=== PATIENT | female | born 1960 | race Caucasian/White ===

== ENCOUNTER 2020-02-05 12:03 | Outpatient (CLI) | payer OTHER, SELFPAY ==
[2020-02-05 12:17] LABS: Basophils Absolute Auto 0.05 K/mm3 (0.00-0.10); Basophils Percent Auto 0.6 % (0.0-1.0); Eosinophils Absolute Auto 0.25 K/mm3 (0.02-0.50); Eosinophils Percent Auto 3.1 % (1.0-6.0); Hemoglobin 14.8 g/dL (12.0-15.0); Immature Granulocyte Absolute 0.02 K/mm3 (0.00-0.00); Immature Granulocyte Percent A 0.3 % (0.0-0.0); Lymphocytes Absolute Auto 2.31 K/mm3 (1.10-4.50); Lymphocytes Percent Auto 29.1 % (18.0-42.0); Mean Corpuscular HGB Conc 30.8 g/dL (32.0-36.0); Mean Corpuscular Hemoglobin 30.4 pg (27.0-31.0); Mean Corpuscular Volume 98.6 fL (78.0-102.0); Mean Platelet Volume 10.8 fl (9.2-11.8); Monocytes Absolute Auto 0.51 K/mm3 (0.10-0.90); Monocytes Percent Auto 6.4 % (2.0-11.0); Neutrophils Absolute Auto 4.8 K/mm3 (1.7-7.2); Neutrophils Percent Auto 60.5 % (50.0-70.0); Platelet Count Result 228 K/mm3 (150-420); Red Blood Count 4.87 M/mm3 (4.20-5.40); Red Cell Distribution Width 12.6 % (11.6-14.4)
[2020-02-05 13:02] LABS: Hemoglobin A1C 6.5 % (<5.7)
[2020-02-05 13:58] LABS: Anion Gap 7.8 mmol/L (7-16); Blood Urea Nitrogen 12 mg/dL (7-18); Calcium 9.4 mg/dL (8.5-10.1); Carbon Dioxide 39 mmol/L (21-32); Chloride 101 mmol/L (98-108); Estimated Glomerular Filt Rate > 60; Glucose 131 mg/dL (70-99); Osmolality Calculated 299 mOsm/kg (285-295); Potassium 3.8 mmol/L (3.5-5.1); Sodium 144 mmol/L (136-145); Vitamin B12 477 pg/mL (193-986)
[2020-02-11 09:18] LABS: Methylmalonic Acid 695 nmol/L (87-318)
== END 2020-02-05 12:04 | disposition home or self-care (01) ==
LOC: CHSLAB 12:07
PROVIDERS: PCP Family Medicine; Visit Provider Family Medicine
DX: E53.8 Deficiency of other specified B group vitamins (principal); E11.42 Type 2 diabetes mellitus with diabetic polyneuropathy
CPT/HCPCS: 36415; 80048; 82607; 83036; 83921; 85025

== ENCOUNTER 2020-05-09 10:59 | Outpatient (CLI) | payer OTHER, SELFPAY ==
[2020-05-09 11:15] LABS: Basophils Absolute Auto 0.04 K/mm3 (0.00-0.10); Basophils Percent Auto 0.5 % (0.0-1.0); Eosinophils Absolute Auto 0.24 K/mm3 (0.02-0.50); Hematocrit 45.8 % (35.0-49.0); Hemoglobin 14.2 g/dL (12.0-15.0); Immature Granulocyte Absolute 0.02 K/mm3 (0.00-0.00); Immature Granulocyte Percent A 0.3 % (0.0-0.0); Lymphocytes Percent Auto 25.3 % (18.0-42.0); Mean Corpuscular Hemoglobin 30.3 pg (27.0-31.0); Mean Corpuscular Volume 97.9 fL (78.0-102.0); Mean Platelet Volume 10.7 fl (9.2-11.8); Monocytes Absolute Auto 0.53 K/mm3 (0.10-0.90); Monocytes Percent Auto 6.7 % (2.0-11.0); Neutrophils Absolute Auto 5.1 K/mm3 (1.7-7.2); Neutrophils Percent Auto 64.2 % (50.0-70.0); Platelet Count Result 233 K/mm3 (150-420); Red Blood Count 4.68 M/mm3 (4.20-5.40); Red Cell Distribution Width 13.7 % (11.6-14.4); White Blood Count 7.9 K/mm3 (4.8-10.8)
[2020-05-09 11:34] LABS: Hemoglobin A1C 6.5 % (<5.7)
[2020-05-09 12:12] LABS: Anion Gap 3.9 mmol/L (7-16); Blood Urea Nitrogen 10 mg/dL (7-18); Calcium 9.4 mg/dL (8.5-10.1); Carbon Dioxide 41 mmol/L (21-32); Chloride 101 mmol/L (98-108); Estimated Glomerular Filt Rate > 60; Glucose 206 mg/dL (70-99); Osmolality Calculated 299 mOsm/kg (285-295); Potassium 3.9 mmol/L (3.5-5.1); Sodium 142 mmol/L (136-145); Vitamin B12 646 pg/mL (193-986)
[2020-05-15 09:07] LABS: Methylmalonic Acid 385 nmol/L (87-318)
== END 2020-05-09 11:00 | disposition home or self-care (01) ==
PROVIDERS: PCP Family Medicine; Visit Provider Family Medicine
DX: E53.8 Deficiency of other specified B group vitamins (principal); E11.42 Type 2 diabetes mellitus with diabetic polyneuropathy
CPT/HCPCS: 36415; 80048; 82607; 83036; 83921; 85025

== ENCOUNTER 2020-08-14 13:40 | Outpatient (CLI) | payer OTHER, SELFPAY ==
[2020-08-14 13:55] LABS: Basophils Absolute Auto 0.05 K/mm3 (0.00-0.10); Basophils Percent Auto 0.6 % (0.0-1.0); Hematocrit 46.7 % (35.0-49.0); Hemoglobin 14.3 g/dL (12.0-15.0); Immature Granulocyte Absolute 0.02 K/mm3 (0.00-0.00); Immature Granulocyte Percent A 0.2 % (0.0-0.0); Lymphocytes Absolute Auto 2.04 K/mm3 (1.10-4.50); Lymphocytes Percent Auto 22.6 % (18.0-42.0); Mean Corpuscular HGB Conc 30.6 g/dL (32.0-36.0); Mean Corpuscular Hemoglobin 30.7 pg (27.0-31.0); Mean Corpuscular Volume 100.2 fL (78.0-102.0); Mean Platelet Volume 10.8 fl (9.2-11.8); Monocytes Absolute Auto 0.61 K/mm3 (0.10-0.90); Monocytes Percent Auto 6.8 % (2.0-11.0); Neutrophils Absolute Auto 6.3 K/mm3 (1.7-7.2); Neutrophils Percent Auto 69.8 % (50.0-70.0); Platelet Count Result 241 K/mm3 (150-420); Red Blood Count 4.66 M/mm3 (4.20-5.40)
[2020-08-14 14:06] LABS: Hemoglobin A1C 6.2 % (<5.7)
[2020-08-14 14:43] LABS: Add Urine Microscopic? NO; Appearance Urine Clear (Clear); Bilirubin Urine Negative (Negative); Blood Urine Negative (Negative); Color Urine Yellow (Yellow); Glucose Urine UA Negative (Negative); Ketones Urine Negative (Negative); Leukocyte Esterase Ur Negative (Negative); Nitrate Urine Negative (Negative); Protein Urine Negative (Negative); Urobilinogen Urine 0.2 mg/dL (0.2-1.0)
[2020-08-14 14:58] LABS: Alanine Aminotransferase 17 U/L (14-59); Albumin Level 2.5 g/dL (3.4-5.0); Alkaline Phosphatase 83 U/L (46-116); Anion Gap 5 mmol/L (8-16); Aspartate Amino Transferase 10 U/L (15-37); Blood Urea Nitrogen 10 mg/dL (7-18); Calcium 9.5 mg/dL (8.5-10.1); Carbon Dioxide 40 mmol/L (21-32); Chloride 98 mmol/L (98-108); Estimated Glomerular Filt Rate > 60; Glucose 140 mg/dL (70-99); Osmolality Calculated 297 mOsm/kg (285-295); Potassium 4.1 mmol/L (3.5-5.1); Sodium 143 mmol/L (136-145); Thyroid Stimulating Hormone 1.77 uIU/mL (0.36-3.74); Total Protein 6.7 g/dL (6.4-8.2); Vitamin B12 746 pg/mL (193-986)
== END 2020-08-14 13:41 | disposition home or self-care (01) ==
LOC: CHSLAB 13:43
PROVIDERS: PCP Family Medicine; Visit Provider Family Medicine
DX: E11.42 Type 2 diabetes mellitus with diabetic polyneuropathy (principal); E53.8 Deficiency of other specified B group vitamins
CPT/HCPCS: 36415; 80053; 81003; 82607; 83036; 84443; 85025

== ENCOUNTER 2021-06-23 12:31 | Outpatient (CLI) | payer OTHER, SELFPAY ==
[2021-06-23 12:43] LABS: Basophils Absolute Auto 0.05 K/mm3 (0.00-0.10); Basophils Percent Auto 0.6 % (0.0-1.0); Eosinophils Absolute Auto 0.23 K/mm3 (0.02-0.50); Eosinophils Percent Auto 2.8 % (1.0-6.0); Hematocrit 48.1 % (35.0-49.0); Immature Granulocyte Absolute 0.02 K/mm3 (0.00-0.00); Immature Granulocyte Percent A 0.2 % (0.0-0.0); Lymphocytes Absolute Auto 1.96 K/mm3 (1.10-4.50); Mean Corpuscular HGB Conc 31.2 g/dL (32.0-36.0); Mean Corpuscular Hemoglobin 31.4 pg (27.0-31.0); Mean Corpuscular Volume 100.6 fL (78.0-102.0); Mean Platelet Volume 10.7 fl (9.2-11.8); Monocytes Absolute Auto 0.56 K/mm3 (0.10-0.90); Monocytes Percent Auto 6.8 % (2.0-11.0); Neutrophils Absolute Auto 5.4 K/mm3 (1.7-7.2); Neutrophils Percent Auto 65.6 % (50.0-70.0); Platelet Count Result 206 K/mm3 (150-420); Red Blood Count 4.78 M/mm3 (4.20-5.40); Red Cell Distribution Width 12.9 % (11.6-14.4); White Blood Count 8.2 K/mm3 (4.8-10.8)
[2021-06-23 13:18] LABS: Hemoglobin A1C 6.3 % (<5.7)
[2021-06-23 13:34] LABS: Alanine Aminotransferase 18 U/L (14-59); Albumin Level 3.9 g/dL (3.4-5.0); Alkaline Phosphatase 86 U/L (46-116); Anion Gap 4 mmol/L (8-16); Aspartate Amino Transferase 12 U/L (15-37); Bilirubin,Total 1.3 mg/dL (0.00-1.00); Blood Urea Nitrogen 7 mg/dL (7-18); Carbon Dioxide 41 mmol/L (21-32); Chloride 99 mmol/L (98-108); Estimated Glomerular Filt Rate > 60; Glucose 157 mg/dL (70-99); Osmolality Calculated 299 mOsm/kg (285-295); Potassium 3.6 mmol/L (3.5-5.1); Sodium 144 mmol/L (136-145); Thyroid Stimulating Hormone 1.11 uIU/mL (0.36-3.74); Total Protein 6.5 g/dL (6.4-8.2)
[2021-06-23 15:04] LABS: Bilirubin Direct 0.2 mg/dL (0-0.2)
== END 2021-06-23 12:32 | disposition home or self-care (01) ==
LOC: CHSLAB 12:34
PROVIDERS: PCP Family Medicine; Visit Provider Family Medicine
DX: E11.42 Type 2 diabetes mellitus with diabetic polyneuropathy (principal); R94.5 Abnormal results of liver function studies
CPT/HCPCS: 36415; 80053; 82248; 83036; 84443; 85025

== ENCOUNTER 2022-01-13 13:09 | Observation (INO) | payer OTHER, SELFPAY ==
[2022-01-13] VITALS (14 sets, daily range): BP systolic 104–116; BP diastolic 51–97; PULSE 72–84; RESP 16–26; TEMP 36.3–37; O2SAT 89–96; BMI 24.0
--- NOTE | ~2022-01-13 | XR_ITS ---
EXAMINATION: XR chest 2V DATE: 01/13/2022 14:12 INDICATION: Shortness of breath and hypoxia TECHNIQUE: PA and lateral views of the chest were obtained. COMPARISON: Chest radiograph dated 04/15/[address] dated 07/05/1990 FINDINGS: The lungs are clear with no focal airspace opacities, pulmonary edema, pleural effusion or pneumothor ax. The cardiomediastinal silhouette is normal. Cholecystectomy clips in the right upper quadrant. Mi ld thoracic spondylosis. Suggestion of an old healed fracture at the lateral head of the right clavic le. IMPRESSION: 1. No acute cardiopulmonary disease. Reviewed, dictated and finalized at location A.
--- NOTE | 2022-01-13 13:15 | PC.NURSE ---
Neida [phone]
--- NOTE | 2022-01-13 13:15 | PC.NURSE ---
Jluis , Son for ride home
--- NOTE | 2022-01-13 13:27 | ECG_ITS ---
Measurements Intervals [place] Rate: 74 P: 68 RI: 138 QRS: -16 QRSD: 91 T: 65 QT: 380 QTc: 423 Interpretive Statements SINUS RHYTHM NORMAL ECG COMPARED TO ECG 03/27/2019 20:24:17 PVC NO LONGER APPRECIATED Electronically Signed On 01-13-2022 13:51:22 CDT by Bryce Terrazas M.D.
[2022-01-13] MEDS: methylPREDNISolone SOD SUCC 125 MG VIAL IV PUSH (13:42)
[2022-01-13 13:45] LABS: Basophils Absolute Auto 0.1 K/mm3 (0.0-0.1); Basophils Percent Auto 0.6 % (0.2-1.2); Eosinophils Absolute Auto 0.2 K/mm3 (0-0.3); Eosinophils Percent Auto 2.5 % (0-4.4); Hemoglobin 14.6 g/dL (12.0-15.0); Immature Granulocyte Absolute 0.02 K/mm3 (0.00-0.031); Immature Granulocyte Percent A 0.2 % (0-0.5); Lymphocytes Absolute Auto 2.18 K/mm3 (0.9-3.2); Lymphocytes Percent Auto 25.8 % (18.3-44.2); Mean Corpuscular HGB Conc 31.7 g/dl (32-36); Mean Corpuscular Hemoglobin 31.6 pg (26-34); Mean Corpuscular Volume 99.6 fl (80-100); Mean Platelet Volume 10.9 fl (7.4-10.4); Monocytes Absolute Auto 0.6 K/mm3 (0.1-0.6); Monocytes Percent Auto 7.6 % (2.6-8.5); Neutrophils Absolute Auto 5.3 K/mm3 (1.3-6.7); Neutrophils Percent Auto 63.3 % (45.5-73.1); Platelet Count Result 226 k/mm3 (150-375); Red Blood Count 4.62 M/mm3 (4.2-5.4); White Blood Count 8.4 K/mm3 (4.5-10.0)
--- NOTE | 2022-01-13 13:47 | ED.SOB ---
HPI - SOB/Dyspnea General Chief Complaint: Shortness of Breath/Dyspnea Stated Complaint: difficulty breathing Time Seen by Provider: 01/13/22 13:32 Source: patient Mode of arrival: ambulatory Limitations: no limitations History of Present Illness HPI Narrative: Patient is a 61-year-old female complaining of shortness of breath x2 days. Patient states that she has a history of COPD and on 2 L continuously at home. Patient not on oxygen upon arrival. Patient denies any cough, chest congestion, chest pain, abdominal pain, nausea, vomiting, diaphoresis, fever or chills Related Data Allergies Allergy/AdvReac Type Severity Reaction Status Date / Time duloxetine Allergy Mild Hives / Verified 01/13/22 13:36 [place] Review of Systems Review of Systems: All systems reviewed & are unremarkable except as noted in HPI and below Constitutional: Constitutional: Denies body ache(s), Denies chills, Denies excessive sweating, Denies fatigue, Denies fever(s), Denies headache(s), Denies lethargy, Denies malaise, Denies weakness and Denies weight loss Eyes: Eyes: Denies blurry vision, Denies change in vision and Denies loss of vision ENT: Denies dizziness, Denies ear discharge, Denies headache(s), Denies lip swelling, Denies epistaxis, Denies nasal congestion, Denies neck pain, Denies throat swelling and Denies tongue swelling Cardiovascular: Cardiovascular: Denies chest pain, Denies chest pain at rest, Denies chest pain with activity, Denies diaphoresis, Denies rapid heart rate, Denies edema, Denies irregular heart rhythm, Denies lightheadedness and Denies palpitations Respiratory: Respiratory: Denies chest congestion, Denies cough and Denies hemoptysis Gastrointestinal: Gastrointestinal: Denies abdominal pain, Denies melena, Denies hematochezia, Denies diarrhea, Denies nausea, Denies vomiting and Denies hematemesis Musculoskeletal: Musculoskeletal: Denies abnormal gait, Denies deformity, Denies joint swelling, Denies limited range of motion, Denies neck pain and Denies numbness Neurologic: Denies Abnormal speech present, Denies abnormal gait, Denies confusion, Denies dizziness, Denies headache(s), Denies focal weakness, Denies loss of vision, Denies numbness, Denies Other visual disturbances, Denies Sensory deficit (Neuro) and Denies weakness Psychiatric: Psychiatric: Denies confusion, Denies depression, Denies auditory hallucinations, Denies homicidal ideation and Denies suicidal ideation Endocrine: Endocrine: Denies cold intolerance, Denies excessive sweating, Denies fatigue, Denies heat intolerance and Denies palpitations Hematologic/Lymphatic: Hematologic/Lymphatic: Denies easy bleeding and Denies easy bruising Allergic/Immunologic: Allergic/Immunologic: Denies lip swelling, Denies throat swelling and Denies tongue swelling Exam Const: General: cooperative, comfortable, no acute distress, well developed, alert and awake; No confusion Orientation/consciousness: oriented to person, oriented to place, oriented to time, patient oriented x3 and No confusion Limitations: no limitations HENMT: Head: normal to inspection, normocephalic and atraumatic Ears: hearing grossly normal bilaterally, TM normal on the right and TM normal on the left General nose exam: Normal external nose present, Normal nares present and No nasal discharge present Face and sinus: normal facial exam Mouth: Yes Normal oral and palatal mucosa present, Yes lip normal, Yes tongue normal and Yes oropharynx normal Throat: posterior oropharynx normal, tonsils normal and uvula midline Eyes: General: appearance normal, both eyes and all related structures Pupils: Equal, round and reactive pupils present EOM: EOMs intact bilaterally Neck: Neck: normal visual inspection, full ROM, no lymphadenopathy and no meningeal signs Chest: Chest palpation & inspection: normal inspection of the chest Resp: Effort & Inspection: not labored, no retractions, not tachypneic and no use of acces
[2022-01-13 13:56] LABS: Alanine Aminotransferase 13 U/L (4-35); Albumin Level 4.2 g/dL (3.5-5.1); Alkaline Phosphatase 73 U/L (38-126); Anion Gap 4 mmol/L (8-16); Aspartate Amino Transferase 21 U/L (14-36); Bilirubin,Total 1.5 mg/dL (0.2-1.3); Blood Urea Nitrogen 19 mg/dL (7-17); Calcium 9.1 mg/dL (8.4-10.2); Carbon Dioxide 39 mmol/L (22-30); Chloride 95 mmol/L (98-107); Estimated CRCL calculation 54 ml/min; Estimated Glomerular Filt Rate > 60; Glucose 129 mg/dL (65-110); Potassium 3.8 mmol/L (3.4-5.0); Sodium 138 mmol/L (137-145)
[2022-01-13] MEDS: ALBUTEROL SULFATE NEB 2.5 MG/0.5 ML INH 5 MG INHALATION ×2 (13:57→19:36)
[2022-01-13] MEDS: IPRATROPIUM BR 0.02% INH SOLN 0.5 MG/2.5 ML VIAL INHALATION ×2 (13:57→19:36)
[2022-01-13 14:02] LABS: Alveolar/Arterial O2 Gradient 71.7 mmHg; Base Excess ABG 12.9 mEq/l (+/-2.0); Carboxyhemoglobin 7.5 % THb (0-2.0); Fractional Inspired Oxygen 32 %; HCO3 ABG 41.7 mEq/l (22.0-26.0); Oxygen Content ABG 18.7 %vol (16.0-22.0); Oxygen Saturation ABG 93.6 % (95.0-100.0); PCO2 ABG 71.9 mmHg (35.0-45.0); PO2 ABG 72.3 mmHg (80.0-100.0); PO2 FiO2 Ratio Arterial Blood 2.26 %; Reduced Hemoglobin 4.7 %THb (0-5.0); Total Hemoglobin 15.1 g/dL (12.0-18.0); pH ABG 7.381 (7.350-7.450)
[2022-01-13 14:03] LABS: Device NASAL CANNULA; Modified Allen's Test Pass; Oxyhemoglobin 87.8 % THb (90.0-100.0); Site Drawn RIGHT RADIAL
[2022-01-13 14:07] LABS: Troponin I < 0.012 ng/mL (0.000-0.034)
--- NOTE | 2022-01-13 16:31 | PM.IMHP ---
H&P: HPI History of Present Illness Date/Time: Patient was placed observation status for expected length of stay less than 23 hours for management, will plan to re-evaluate tomorrow for improvement. 01/13/22 16:31 Chief Complaint: Shortness of breath Narrative: Ms. Garcia is a 61-year-old female who presented to the emergency room with complaints of increasing shortness of breath over the last 3 days. Patient states that she typically gets short of breath with activity and not at rest. Patient states she is supposed to be wearing oxygen at 2 L per nasal cannula at home at all times, but when she is outside of her house or walking her dog she does not do so. Patient states that she does not have a at convenient portable tank so she does not wear oxygen when she leaves her house. Patient states she is post median nebulizer treatments routinely, which she states she does not do. Patient states that she does take a routine daily steroid inhaler, but she does not recall the name of it at this time. Patient admits to being noncompliant with her current regimen for her COPD. Patient denies any chest pain, lightheadedness, dizziness, syncopal, or near syncopal episodes. Patient denies any orthopnea or PND. Patient denies any abdominal pain, constipation, nausea, vomiting or diarrhea. Patient denies any dysuria, hematuria, frequency, urgency. Patient states she does have a known history of COPD, hypertension, diabetes mellitus, dyslipidemia, depression, and peripheral neuropathy. Patient states she has cut down to half pack a cigarettes a day over the last few months but prior to that she was smoking 1 pack of cigarettes a day for approximately 50 years. Patient states he does smoke marijuana weekly. Per previous records patient does have a history of bipolar disorder and obstructive sleep apnea without compliance although patient does not admit to this history. Patient is unsure of her surgical history Review of Systems Review of Systems: A 12 point review of systems was completed patient all pertinent positive and negative per HPI the remainder are unremarkable. [facility] Past Medical History Medical History (Updated 01/13/22 @ 16:39 by Merari Perry APRN) COPD (chronic obstructive pulmonary disease) Depression Diabetes mellitus Dyslipidemia Hypertension Peripheral neuropathy Surgical History Surgical History (Updated 01/13/22 @ 16:37 by Merari Perry APRN) Surgical history unknown Social History Social History (Updated 01/13/22 @ 16:37 by Merari Perry APRN) Smoking packs per day: 1 Smoking cigarettes per day: 20.0 Years smoked: 50 Smoking pack-years: 50.00 Smoking status: Current every day smoker Tobacco type: cigarettes Meds Home Medications and Allergies Allergies Allergy/AdvReac Type Severity Reaction Status Date / Time duloxetine Allergy Mild Hives / Verified 01/13/22 13:36 Red [place] Vital Signs Vital Signs - 24 hr 01/13/22 13:21 01/13/22 13:30 01/13/22 13:33 Temperature 37.0 C Pulse Rate 83 Respiratory Rate 18 Blood Pressure 110/97 H Pulse Oximetry 89 L 94 96 01/13/22 13:57 01/13/22 15:37 Temperature Pulse Rate 78 73 Respiratory Rate 20 18 Blood Pressure 116/70 Pulse Oximetry 96 Exam Narrative: Constitutional: Patient is well-nourished in no acute distress. Patient is alert and oriented x3 HEENT: Moist mucous membranes. No scleral icterus. No lymphadenopathy. Neck: No carotid bruits noted no JVD noted Lungs: Lung sounds are decreased auscultation bilaterally with coarse breath sounds at bilateral bases and expiratory wheezes noted throughout. Cardiovascular: Apical pulse is regular rate and rhythm. S1-S2 noted, no S3 or S4 noted. No gallops, murmurs, or rubs noted. Abdomen: Soft, round, and nontender. No palpable masses. Extremities: No edema. Nontender. Skin: No rashes or lesions. Warm and dry. Skin is intact. Neurological: No f
[2022-01-13 17:14] LABS: SARS-CoV-2 RNA PCR Negative
[2022-01-13 20:04] LABS: Alveolar/Arterial O2 Gradient 78.2 mmHg; Base Excess ABG 9.8 mEq/l (+/-2.0); Fractional Inspired Oxygen 32 %; HCO3 ABG 38.7 mEq/l (22.0-26.0); Oxygen Content ABG 18.7 %vol (16.0-22.0); Oxygen Saturation ABG 91.2 % (95.0-100.0); Oxyhemoglobin 89.1 % THb (90.0-100.0); PO2 ABG 65.8 mmHg (80.0-100.0); PO2 FiO2 Ratio Arterial Blood 2.06 %; Total Hemoglobin 14.9 g/dL (12.0-18.0); pH ABG 7.349 (7.350-7.450)
[2022-01-13 20:06] LABS: Device NASAL CANNULA; Modified Allen's Test Pass; PCO2 ABG 71.9 mmHg (35.0-45.0); Site Drawn RIGHT RADIAL
[2022-01-13 21:20] LABS: Glucose Point of Care 347 mg/dl (65-105)
[2022-01-13] MEDS: FAMOTIDINE 20 MG TABLET PO (22:37)
[2022-01-13] MEDS: GABAPENTIN 300 MG CAPSULE PO (22:37)
[2022-01-13] MEDS: methylPREDNISolone SOD SUCC 125 MG VIAL 60 MG IV PUSH (22:37)
[2022-01-14] VITALS (18 sets, daily range): BP systolic 109–127; BP diastolic 47–84; PULSE 47–103; RESP 16–24; TEMP 36.1–36.6; O2SAT 90–97
--- NOTE | 2022-01-14 04:47 | PC.NURSE ---
01/14/22 0440 pt removed cpap refused to keep it on. nasal cannula reapplied @ 3L. pt denies sob.
[2022-01-14] MEDS: methylPREDNISolone SOD SUCC 125 MG VIAL 60 MG IV PUSH (05:14)
[2022-01-14 05:20] LABS: Alveolar/Arterial O2 Gradient 88.6 mmHg; Base Excess ABG 9.3 mEq/l (+/-2.0); Fractional Inspired Oxygen 32 %; HCO3 ABG 37.4 mEq/l (22.0-26.0); Oxygen Content ABG 19.4 %vol (16.0-22.0); Oxygen Saturation ABG 90.8 % (95.0-100.0); Oxyhemoglobin 90.5 % THb (90.0-100.0); PO2 ABG 62.8 mmHg (80.0-100.0); PO2 FiO2 Ratio Arterial Blood 1.96 %; Total Hemoglobin 15.3 g/dL (12.0-18.0); pH ABG 7.374 (7.350-7.450)
[2022-01-14 05:22] LABS: Device NASAL CANNULA; Modified Allen's Test Pass; PCO2 ABG 65.6 mmHg (35.0-45.0); Site Drawn RIGHT BRACHIAL
[2022-01-14 06:10] LABS: Basophils Percent Auto 0.2 % (0.2-1.2); Hemoglobin 14.8 g/dL (12.0-15.0); Immature Granulocyte Absolute 0.03 K/mm3 (0.00-0.031); Immature Granulocyte Percent A 0.3 % (0-0.5); Lymphocytes Absolute Auto 0.85 K/mm3 (0.9-3.2); Lymphocytes Percent Auto 9.9 % (18.3-44.2); Mean Corpuscular HGB Conc 32.2 g/dl (32-36); Mean Corpuscular Hemoglobin 31.5 pg (26-34); Mean Corpuscular Volume 97.9 fl (80-100); Mean Platelet Volume 11.2 fl (7.4-10.4); Monocytes Absolute Auto 0.1 K/mm3 (0.1-0.6); Neutrophils Absolute Auto 7.6 K/mm3 (1.3-6.7); Neutrophils Percent Auto 88.6 % (45.5-73.1); Platelet Count Result 239 k/mm3 (150-375); Red Cell Distribution Width 12.6 % (11.5-14.5); White Blood Count 8.6 K/mm3 (4.5-10.0)
[2022-01-14 06:21] LABS: Anion Gap 6 mmol/L (8-16); Blood Urea Nitrogen 18 mg/dL (7-17); Calcium 9.1 mg/dL (8.4-10.2); Carbon Dioxide 37 mmol/L (22-30); Chloride 94 mmol/L (98-107); Estimated CRCL calculation 83 ml/min; Estimated Glomerular Filt Rate > 60; Glucose 167 mg/dL (65-110); Potassium 3.3 mmol/L (3.4-5.0); Sodium 137 mmol/L (137-145)
[2022-01-14] MEDS: ALBUTEROL SULFATE NEB 2.5 MG/0.5 ML INH 5 MG INHALATION ×3 (07:56→21:29)
[2022-01-14] MEDS: IPRATROPIUM BR 0.02% INH SOLN 0.5 MG/2.5 ML VIAL INHALATION ×3 (07:57→21:30)
[2022-01-14 08:26] LABS: Glucose Point of Care 184 mg/dl (65-105)
[2022-01-14] MEDS: CYANOCOBALAMIN 1,000 MCG TABLET 5000 MCG PO (09:09)
[2022-01-14] MEDS: FUROSEMIDE 20 MG TABLET PO (09:10)
[2022-01-14] MEDS: GABAPENTIN 300 MG CAPSULE PO ×2 (09:10→17:03)
[2022-01-14] MEDS: hydroCHLOROthiazide 12.5 MG CAPSULE PO (09:10)
[2022-01-14] MEDS: CITALOPRAM HYDROBROMIDE 20 MG TABLET PO (09:10)
[2022-01-14] MEDS: SIMVASTATIN 20 MG TABLET PO (09:11)
[2022-01-14] MEDS: glipiZIDE XL 2.5 MG TAB.ER.24 PO (09:11)
[2022-01-14] MEDS: lisinopriL 10 MG TABLET PO (09:11)
[2022-01-14] MEDS: POTASSIUM CHLORIDE 10 MEQ TABLET.ER PO (09:11)
[2022-01-14] MEDS: ENOXAPARIN 40 MG/0.4 ML SYRINGE SUB-Q (09:12)
[2022-01-14] MEDS: POTASSIUM CHLORIDE 20 MEQ TABLET PO (09:16)
[2022-01-14 12:09] LABS: Glucose Point of Care 230 mg/dl (65-105)
[2022-01-14] MEDS: INSULIN ASPART (*BKC) 100 UNITS/ML SUB-Q ×2 (12:11→17:02)
--- NOTE | 2022-01-14 13:28 | PM.IMPN ---
Progress Note: A&P Assessment and Plan (1) Acute exacerbation of chronic obstructive airways disease: Code(s): J44.1 - Chronic obstructive pulmonary disease with (acute) exacerbation Status: Acute Assessment and Plan: Patient presented with increased shortness of breath, wheezing, and GAMBLE continue IV Solu-Medrol, weaned to 40 mg IV b.i.d. plan to transition to p.o. 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 she will need to follow-up with her PCP for pulmonology referral (3) Diabetes mellitus: Code(s): E11.9 - Type 2 diabetes mellitus without complications Status: Inactive Assessment and Plan: blood sugars have been slightly elevated, likely due to IV steroids. continue Accu-Cheks, moderate dose sliding scale insulin, hypoglycemic protocol continue glipizide will add 4 units scheduled NovoLog with meals while on IV steroids monitor glucose trends and adjust medication regimen as needed check updated A1c (4) Hypertension: Code(s): I10 - Essential (primary) hypertension Status: Inactive Assessment and Plan: blood pressures reviewed and have been stable. Last BP 109/60 continue lisinopril and hydrochlorothiazide monitor blood pressure trends (5) Noncompliance: Code(s): Z91.19 - Patient's noncompliance with other medical treatment and regimen Status: Acute Assessment and Plan: patient endorse to admitting provider that she had not been compliant with home oxygen or with her medications importance of compliance has been discussed with the patient skin care technician consultation to help identify any discharge needs (6) Hypokalemia: Code(s): E87.6 - Hypokalemia Status: Acute Assessment and Plan: potassium is 3.3 today administer 20 mEq p.o. KCl monitor BMP (7) Tobacco abuse: Code(s): Z72.0 - Tobacco use Status: Acute Assessment and Plan: She states she is down to 7 cigarettes per day She would like to quit but states many people come over to her house and smoke against her wishes, thus making it hard for her to quit. Educated patient on smoking cessation Subjective Date/time seen: 01/14/22 13:28 Interval history: Date of service: 01/14/2022 Gabbie Garcia is a 61-year-old female with a history of COPD, type 2 diabetes mellitus, hypertension, hyperlipidemia, and depression who is seen in follow-up for COPD exacerbation. She is feeling a lot better today. She states her wheezing has improved significantly and she has not noticed any wheezing at all today. She does still have occasional cough productive of white sputum. She denies orthopnea, PND. No chest pain or palpitations. She denies conversational dyspnea or dyspnea on exertion. She is able to have increased activity today and tolerating this without difficulty. She denies abdominal pain, nausea, vomiting, diarrhea, fever, chills, weakness, dizziness, lightheadedness. Review of Systems Review of Systems: All systems reviewed & are unremarkable except as noted in HPI and below Exam Narrative: General: well-nourished, chronically ill-appearing 61-year-old female appearing slightly older than stated age, sitting up in bed, comfortable, NARD Neuro: awake, alert and oriented x4, speech clear, no focal neuro deficits noted HEENMT: normocephalic, atraumatic, EOMI, sclerae anicteric,
[2022-01-14 16:57] LABS: Glucose Point of Care 182 mg/dl (65-105)
--- NOTE | 2022-01-14 17:55 | PC.NURSE ---
I returned from lunch break around 1430. Hugo (orientee) went to her training at this time in education. I rounded on our patients. Room 303 was not in her room. Kati (charge nurse), Maliha (warehouse team member), and security notified. Patient came back about 30 minutes later. She went outside to smoke and had her son pick her up to take her to [employer]. Patient returned to room with a bag containing a coloring book and sugar free candies. Patient was educated on not to leave the unit / do this again. Assessment charted.
[2022-01-14] MEDS: methylPREDNISolone SOD SUCC 40 MG VIAL IV PUSH (20:35)
[2022-01-14] MEDS: FAMOTIDINE 20 MG TABLET PO (20:35)
[2022-01-14 20:52] LABS: Glucose Point of Care 64 mg/dl (65-105)
[2022-01-14 21:43] LABS: Glucose Point of Care 127 mg/dl (65-105)
[2022-01-15] MEDS: ALBUTEROL SULFATE NEB 2.5 MG/0.5 ML INH 5 MG INHALATION ×2 (02:37→07:58)
[2022-01-15] MEDS: IPRATROPIUM BR 0.02% INH SOLN 0.5 MG/2.5 ML VIAL INHALATION ×2 (02:38→07:58)
[2022-01-15 02:40] VITALS: PULSE 83; PULSE 86; RESP 20
[2022-01-15 05:30] VITALS: BP 105/60; PULSE 71; RESP 16; TEMP 37; O2SAT 93
[2022-01-15 06:00] LABS: Hematocrit 43.3 % (37.0-47.0); Hemoglobin 13.3 g/dL (12.0-15.0); Mean Corpuscular HGB Conc 30.7 g/dl (32-36); Mean Corpuscular Hemoglobin 30.7 pg (26-34); Platelet Count Result 233 k/mm3 (150-375); Red Blood Count 4.33 M/mm3 (4.2-5.4); Red Cell Distribution Width 13.2 % (11.5-14.5); White Blood Count 14.1 K/mm3 (4.5-10.0)
[2022-01-15 06:12] LABS: Anion Gap 4 mmol/L (8-16); Blood Urea Nitrogen 18 mg/dL (7-17); Calcium 8.7 mg/dL (8.4-10.2); Carbon Dioxide 38 mmol/L (22-30); Chloride 92 mmol/L (98-107); Estimated CRCL calculation 70 ml/min; Estimated Glomerular Filt Rate > 60; Glucose 272 mg/dL (65-110); Potassium 3.6 mmol/L (3.4-5.0); Sodium 134 mmol/L (137-145)
[2022-01-15 06:36] LABS: Glucose Point of Care 233 mg/dl (65-105)
[2022-01-15 07:53] LABS: Glucose Point of Care 187 mg/dl (65-105)
[2022-01-15 07:55] VITALS: PULSE 79; RESP 18
[2022-01-15 08:00] VITALS: O2SAT 96
[2022-01-15 08:03] VITALS: PULSE 82; RESP 17
[2022-01-15] MEDS: POTASSIUM CHLORIDE 10 MEQ TABLET.ER PO (08:19)
[2022-01-15] MEDS: CYANOCOBALAMIN 1,000 MCG TABLET 5000 MCG PO (08:20)
[2022-01-15] MEDS: SIMVASTATIN 20 MG TABLET PO (08:21)
[2022-01-15] MEDS: hydroCHLOROthiazide 12.5 MG CAPSULE PO (08:21)
[2022-01-15] MEDS: CITALOPRAM HYDROBROMIDE 20 MG TABLET PO (08:21)
[2022-01-15] MEDS: GABAPENTIN 300 MG CAPSULE PO (08:21)
[2022-01-15] MEDS: lisinopriL 10 MG TABLET PO (08:21)
[2022-01-15] MEDS: glipiZIDE XL 2.5 MG TAB.ER.24 PO (08:21)
[2022-01-15] MEDS: FUROSEMIDE 20 MG TABLET PO (08:21)
[2022-01-15] MEDS: INSULIN ASPART (*BKC) 100 UNITS/ML SUB-Q (08:22)
[2022-01-15] MEDS: ENOXAPARIN 40 MG/0.4 ML SYRINGE SUB-Q (08:22)
[2022-01-15] MEDS: methylPREDNISolone SOD SUCC 40 MG VIAL IV PUSH (08:22)
[2022-01-15 08:30] VITALS: O2SAT 99
[2022-01-15 08:43] LABS: Hemoglobin A1C 5.9 % (<5.7)
--- NOTE | 2022-01-15 11:15 | P.DS_ITS ---
DS: Admitting Diagnosis Discharge Date 01/15/2022 Admitting Diagnosis COPD exacerbation DS: Discharge Diagnosis Discharge Diagnosis (1) Acute exacerbation of chronic obstructive airways disease: Code(s): J44.1 - Chronic obstructive pulmonary disease with (acute) exacerbation Status: Acute Assessment and Plan: Patient presented with increased shortness of breath, wheezing, and GAMBLE * She had symptomatic improvement and resolution of wheezing with IV Solu-Medrol * Transitioned to p.o. prednisone 40 mg x5 days * Continue albuterol ipratropium nebs as needed at home. * No indication for antibiotics. Patient had no sputum production * Continue with maintenance Dulera inhaler. She admits that she has not been compliant with taking this regularly. Education provided regarding compliance * She will benefit from pulmonology referral as an outpatient. Follow-up with PCP (2) Chronic respiratory failure: Code(s): J96.10 - Chronic respiratory failure, unspecified whether with hypoxia or hypercapnia Status: Acute Assessment and Plan: Patient is on 2 L supplemental O2 at home * States she uses this at all times but will take it off for short periods if she goes outside * She maintain adequate O2 saturations on her typical home 2 L * Outpatient pulmonology referral as above (3) Diabetes mellitus: Code(s): E11.9 - Type 2 diabetes mellitus without complications Status: Inactive Assessment and Plan: A1c is 5.9 * Blood sugars reviewed and were elevated above target while on IV steroids * Managed with additional 4 units NovoLog scheduled with meals while on IV steroids during admission * Continue home glipizide * Instructed to monitor blood sugars closely, especially while on steroids (4) Hypertension: Code(s): I10 - Essential (primary) hypertension Status: Inactive Assessment and Plan: blood pressures reviewed and were well controlled * continue lisinopril and hydrochlorothiazide (5) Noncompliance: Code(s): Z91.19 - Patient's noncompliance with other medical treatment and regimen Status: Acute Assessment and Plan: Patient admits that she had not been compliant with home oxygen or her daily medications * importance of compliance has been discussed with the patient * urgent care nurse practitioner consultation to help identify any discharge needs. She does have all of her appropriate equipment and prescriptions at home. No issues with obtaining or affording her medications. (6) Hypokalemia: Code(s): E87.6 - Hypokalemia Status: Acute Assessment and Plan: Resolved with potassium supplementation * Continue home potassium supplement 10 mEq p.o. daily (7) Tobacco abuse: Code(s): Z72.0 - Tobacco use Status: Acute Assessment and Plan: She states she is down to 7 cigarettes per day * She would like to quit but does not feel that she can as she has been smoking for over 50 years * Educated patient on smoking cessation DS: Summary Hospital Course Hospital Course: Date of admission: 01/13/2022 Date of discharge: 01/14/2022 Gabbie Garcia is a 61-year-old female with a history of COPD, chronic respiratory failure on 2 L supplemental O2 type 2 diabetes mellitus, hypertension, hyperlipidemia, and depression who presented to the emergency on 01/13/2022 with increased shortness of breath ongoing for 2 days. It seems she had not been using her home oxygen appropriately. Her ABG on presentation showed mil
--- NOTE | 2022-01-15 11:15 | PM.DS ---
DS: Admitting Diagnosis Discharge Date 01/15/2022 Admitting Diagnosis COPD exacerbation DS: Discharge Diagnosis Discharge Diagnosis (1) Acute exacerbation of chronic obstructive airways disease: Code(s): J44.1 - Chronic obstructive pulmonary disease with (acute) exacerbation Status: Acute Assessment and Plan: Patient presented with increased shortness of breath, wheezing, and GAMBLE She had symptomatic improvement and resolution of wheezing with IV Solu-Medrol Transitioned to p.o. prednisone 40 mg x5 days Continue albuterol ipratropium nebs as needed at home. No indication for antibiotics. Patient had no sputum production Continue with maintenance Dulera inhaler. She admits that she has not been compliant with taking this regularly. Education provided regarding compliance She will benefit from pulmonology referral as an outpatient. Follow-up with PCP (2) Chronic respiratory failure: Code(s): J96.10 - Chronic respiratory failure, unspecified whether with hypoxia or hypercapnia Status: Acute Assessment and Plan: Patient is on 2 L supplemental O2 at home States she uses this at all times but will take it off for short periods if she goes outside She maintain adequate O2 saturations on her typical home 2 L Outpatient pulmonology referral as above (3) Diabetes mellitus: Code(s): E11.9 - Type 2 diabetes mellitus without complications Status: Inactive Assessment and Plan: A1c is 5.9 Blood sugars reviewed and were elevated above target while on IV steroids Managed with additional 4 units NovoLog scheduled with meals while on IV steroids during admission Continue home glipizide Instructed to monitor blood sugars closely, especially while on steroids (4) Hypertension: Code(s): I10 - Essential (primary) hypertension Status: Inactive Assessment and Plan: blood pressures reviewed and were well controlled continue lisinopril and hydrochlorothiazide (5) Noncompliance: Code(s): Z91.19 - Patient's noncompliance with other medical treatment and regimen Status: Acute Assessment and Plan: Patient admits that she had not been compliant with home oxygen or her daily medications importance of compliance has been discussed with the patient animal care taker consultation to help identify any discharge needs. She does have all of her appropriate equipment and prescriptions at home. No issues with obtaining or affording her medications. (6) Hypokalemia: Code(s): E87.6 - Hypokalemia Status: Acute Assessment and Plan: Resolved with potassium supplementation Continue home potassium supplement 10 mEq p.o. daily (7) Tobacco abuse: Code(s): Z72.0 - Tobacco use Status: Acute Assessment and Plan: She states she is down to 7 cigarettes per day She would like to quit but does not feel that she can as she has been smoking for over 50 years Educated patient on smoking cessation DS: Summary Hospital Course Hospital Course: Date of admission: 01/13/2022 Date of discharge: 01/14/2022 Gabbie Garcia is a 61-year-old female with a history of COPD, chronic respiratory failure on 2 L supplemental O2 type 2 diabetes mellitus, hypertension, hyperlipidemia, and depression who presented to the emergency on 01/13/2022 with increased shortness of breath ongoing for 2 days. It seems she had not been using her home oxygen appropriately. Her ABG on presentation showed mild hypoxemia. She was admitted to the hospitalist service for further evaluation management. Please see above for further details. She had symptomatic improvement with IV steroids and will continue p.o. prednisone as an outpatient. Discussed maintaining strict compliance with oxygen regimen as well as her inhalers. She has a follow-up with her PCP promptly and should be referred to pulmonology. Discussed smoking cessation at [facility]
[2022-01-15 11:25] LABS: Glucose Point of Care 135 mg/dl (65-105)
== END 2022-01-15 14:30 | disposition home or self-care (01) ==
LOC: ANHED 15:39 → ANH3MEDSUR 17:41
PROVIDERS: Nurse Practitioner Adult Health; Physician Assistant; Admitting Provider Family Medicine; Emergency Provider Emergency Medicine; PCP Family Medicine; Visit Provider Family Medicine
DX: J44.1 Chronic obstructive pulmonary disease with (acute) exacerbation (principal); J96.10 Chronic respiratory failure, unspecified whether with hypoxia or hypercapnia; I10 Essential (primary) hypertension; E11.9 Type 2 diabetes mellitus without complications; E78.5 Hyperlipidemia, unspecified; E11.42 Type 2 diabetes mellitus with diabetic polyneuropathy; E87.6 Hypokalemia; F17.210 Nicotine dependence, cigarettes, uncomplicated; F32.A Depression, unspecified; Z99.81 Dependence on supplemental oxygen; Z91.19 Patient's noncompliance with other medical treatment and regimen; Z20.822 Contact with and (suspected) exposure to COVID-19
CPT/HCPCS: 36415; 36600; 71046; 80048; 80053; 82375; 82805; 82948; 83036; 83050; 84484; 85025; 85027; 93005; 94640; 94660; 96372; 96374; 96376; 99285; A9270; C9803; G0378; G0379; J1650; J1815; J2920; J2930; U0003; U0005

== ENCOUNTER 2022-02-11 09:28 | Outpatient (CLI) | payer OTHER, SELFPAY ==
--- NOTE | ~2022-02-11 | CT_ITS ---
EXAMINATION: CT lung screening DATE: 02/11/2022 09:46 INDICATION: Personal history of nicotine dependence, current smoker with 24 pack year history TECHNIQUE: Computed tomography (CT) of the chest was performed without intravenous contrast. The dose -length product (DLP) was 81.58 mGy-cm. Automated exposure control and iterative reconstruction techn [id number] were employed. COMPARISON: 07/05/2019 FINDINGS: There is a 2 mm nodule in the right upper lobe. The lungs are free of acute opacities. Ther e is mild emphysema. No pleural effusion or pneumothorax is identified. Calcified pulmonary nodules a nd calcified right hilar and mediastinal lymph nodes are consistent with old granulomatous disease. N o pathologically enlarged thoracic lymph nodes are identified. The heart size is normal. Calcific cor onary artery atherosclerosis is noted. There is moderate thoracic spondylosis. IMPRESSION: 1. Lung-RADS category 2: Benign appearance or behavior. Continue annual screening with noncontrast lo w-dose chest CT in 12 months. Reviewed, dictated and finalized at location F. IMPRESSION: 1. Lung-RADS category 2: Benign appearance or behavior. Continue annual screeni ng with noncontrast low-dose chest CT in 12 months.
== END 2022-02-11 09:29 | disposition home or self-care (01) ==
LOC: CHSIMG 09:29
PROVIDERS: PCP Family Medicine; Visit Provider Family Medicine
DX: Z12.2 Encounter for screening for malignant neoplasm of respiratory organs (principal); Z87.891 Personal history of nicotine dependence
CPT/HCPCS: 71271

== ENCOUNTER 2022-03-16 10:26 | Outpatient (CLI) | payer OTHER, SELFPAY ==
--- NOTE | ~2022-03-16 | XR_ITS ---
EXAMINATION: XR chest 2V 03/16/2022 10:48 INDICATION: Cough PROCEDURE: 2 view chest COMPARISON: Comparison to multiple prior studies sequentially, with oldest reviewed study dated 05/2005. FINDINGS: The lungs are clear. The cardiomediastinal silhouette is within normal limits. There are no pleural effusions. There is no pneumothorax suspected. IMPRESSION: 1: NO ACUTE CARDIOPULMONARY DISEASE. Reviewed, dictated and finalized at location A.
[2022-03-16 10:40] LABS: Basophils Absolute Auto 0.05 K/mm3 (0.00-0.10); Basophils Percent Auto 0.6 % (0.0-1.0); Hematocrit 45.3 % (35.0-49.0); Hemoglobin 14.3 g/dL (12.0-15.0); Immature Granulocyte Absolute 0.02 K/mm3 (0.00-0.00); Immature Granulocyte Percent A 0.2 % (0.0-0.0); Lymphocytes Absolute Auto 1.23 K/mm3 (1.10-4.50); Lymphocytes Percent Auto 14.3 % (18.0-42.0); Mean Corpuscular HGB Conc 31.6 g/dL (32.0-36.0); Mean Corpuscular Hemoglobin 31.2 pg (27.0-31.0); Mean Corpuscular Volume 98.7 fL (78.0-102.0); Mean Platelet Volume 10.8 fl (9.2-11.8); Monocytes Absolute Auto 0.73 K/mm3 (0.10-0.90); Monocytes Percent Auto 8.5 % (2.0-11.0); Neutrophils Absolute Auto 6.6 K/mm3 (1.7-7.2); Neutrophils Percent Auto 76.4 % (50.0-70.0); Platelet Count Result 257 K/mm3 (150-420); Red Blood Count 4.59 M/mm3 (4.20-5.40); Red Cell Distribution Width 12.8 % (11.6-14.4); White Blood Count 8.6 K/mm3 (4.8-10.8)
[2022-03-16 11:11] LABS: Alanine Aminotransferase 17 U/L (14-59); Albumin Level 3.7 g/dL (3.4-5.0); Alkaline Phosphatase 76 U/L (46-116); Anion Gap 3 mmol/L (8-16); Aspartate Amino Transferase 10 U/L (15-37); Bilirubin,Total 1.6 mg/dL (0.00-1.00); Blood Urea Nitrogen 12 mg/dL (7-18); Calcium 9.3 mg/dL (8.5-10.1); Carbon Dioxide 38 mmol/L (21-32); Chloride 94 mmol/L (98-108); Estimated Glomerular Filt Rate > 60; Glucose 170 mg/dL (70-99); Osmolality Calculated 283 mOsm/kg (285-295); Potassium 3.6 mmol/L (3.5-5.1); Sodium 135 mmol/L (136-145); Total Protein 6.5 g/dL (6.4-8.2)
[2022-03-16 13:45] LABS: Bilirubin Direct 0.3 mg/dL (0-0.2)
== END 2022-03-16 10:27 | disposition home or self-care (01) ==
LOC: CHSIMG 10:29
PROVIDERS: PCP Family Medicine; Visit Provider Family Medicine
DX: R05.9 Cough, unspecified (principal); E11.9 Type 2 diabetes mellitus without complications; I10 Essential (primary) hypertension
CPT/HCPCS: 36415; 71046; 80053; 82248; 85025

== ENCOUNTER 2022-03-22 07:59 | Outpatient (CLI) | payer OTHER, SELFPAY ==
--- NOTE | ~2022-03-22 | US_ITS ---
US right upper quadrant INDICATION: Elevated bilirubin. PROCEDURE: Realtime right upper abdominal ultrasound. COMPARISON: No prior studies for comparison. FINDINGS: The pancreas is normal without focal mass or pancreatic ductal dilation. Liver echotexture is normal without focal mass or intrahepatic biliary dilatation. There is normal directional flow i n the portal vein. Gallbladder is surgically absent. Common bile duct measures 5 mm.. IMPRESSION: 1: Unremarkable limited abdominal ultrasound postcholecystectomy. Reviewed, dictated and finalized at location B.
== END 2022-03-22 08:00 | disposition home or self-care (01) ==
LOC: CHSIMG 08:01
PROVIDERS: PCP Family Medicine; Visit Provider Family Medicine
DX: E80.7 Disorder of bilirubin metabolism, unspecified (principal)
CPT/HCPCS: 76705

== ENCOUNTER 2022-04-29 10:17 | Outpatient (CLI) | payer OTHER, SELFPAY ==
[2022-04-29 10:34] LABS: Basophils Absolute Auto 0.05 K/mm3 (0.00-0.10); Basophils Percent Auto 0.8 % (0.0-1.0); Eosinophils Absolute Auto 0.17 K/mm3 (0.02-0.50); Eosinophils Percent Auto 2.7 % (1.0-6.0); Hematocrit 47.5 % (35.0-49.0); Hemoglobin 14.6 g/dL (12.0-15.0); Immature Granulocyte Absolute 0.02 K/mm3 (0.00-0.00); Immature Granulocyte Percent A 0.3 % (0.0-0.0); Lymphocytes Absolute Auto 1.64 K/mm3 (1.10-4.50); Lymphocytes Percent Auto 26.2 % (18.0-42.0); Mean Corpuscular HGB Conc 30.7 g/dL (32.0-36.0); Mean Corpuscular Hemoglobin 30.5 pg (27.0-31.0); Mean Corpuscular Volume 99.4 fL (78.0-102.0); Mean Platelet Volume 10.9 fl (9.2-11.8); Monocytes Absolute Auto 0.49 K/mm3 (0.10-0.90); Monocytes Percent Auto 7.8 % (2.0-11.0); Neutrophils Absolute Auto 3.9 K/mm3 (1.7-7.2); Neutrophils Percent Auto 62.2 % (50.0-70.0); Platelet Count Result 205 K/mm3 (150-420); Red Blood Count 4.78 M/mm3 (4.20-5.40); Red Cell Distribution Width 13.3 % (11.6-14.4); White Blood Count 6.3 K/mm3 (4.8-10.8)
[2022-04-29 10:46] LABS: MALB Creatinine Ratio 13.9 mg/g (0-30); Microalbumin Urine Random < 13.0 mg/L
[2022-04-29 10:50] LABS: Hemoglobin A1C 6.6 % (<5.7)
[2022-04-29 11:25] LABS: Alanine Aminotransferase 15 U/L (14-59); Albumin Level 3.9 g/dL (3.4-5.0); Alkaline Phosphatase 75 U/L (46-116); Anion Gap 6 mmol/L (8-16); Aspartate Amino Transferase 11 U/L (15-37); Bilirubin,Total 1.7 mg/dL (0.00-1.00); Blood Urea Nitrogen 12 mg/dL (7-18); Calcium 9.1 mg/dL (8.5-10.1); Carbon Dioxide 39 mmol/L (21-32); Chloride 97 mmol/L (98-108); Estimated Glomerular Filt Rate > 60; Glucose 137 mg/dL (70-99); Osmolality Calculated 295 mOsm/kg (285-295); Potassium 3.8 mmol/L (3.5-5.1); Sodium 142 mmol/L (136-145); Total Protein 6.7 g/dL (6.4-8.2); Vitamin B12 1001 pg/mL (193-986)
[2022-04-29 14:05] LABS: Bilirubin Direct 0.3 mg/dL (0-0.2)
[2022-05-03 07:29] LABS: Methylmalonic Acid 284 nmol/L (87-318)
== END 2022-04-29 10:18 | disposition home or self-care (01) ==
LOC: CHSLAB 10:19
PROVIDERS: PCP Family Medicine; Visit Provider Family Medicine
DX: E53.8 Deficiency of other specified B group vitamins (principal); E11.42 Type 2 diabetes mellitus with diabetic polyneuropathy; I10 Essential (primary) hypertension; E80.7 Disorder of bilirubin metabolism, unspecified
CPT/HCPCS: 36415; 80053; 82043; 82248; 82607; 83036; 83921; 85025

== ENCOUNTER 2022-05-13 10:42 | Outpatient (CLI) | payer OTHER, SELFPAY ==
[2022-05-13 12:16] LABS: INR 0.9; Prothrombin Time 12.2 Seconds (11.1-14.7)
[2022-05-13 12:40] LABS: Alanine Aminotransferase 10 U/L (6-35); Albumin Level 4.3 g/dL (3.5-5.1); Alkaline Phosphatase 68 U/L (38-126); Aspartate Amino Transferase 27 U/L (14-36); Bilirubin,Total 1.6 mg/dL (0.2-1.3)
[2022-05-13 13:22] LABS: Hepatitis B Surface Antigen Negative (Negative)
[2022-05-13 13:28] LABS: HAV RESULT Negative (Negative)
[2022-05-13 13:39] LABS: Hepatitis C Virus Antibody Negative (Negative)
[2022-05-14 01:13] LABS: Hepatitis B Core IgM Result Negative (Negative)
[2022-05-14 01:14] LABS: Hepatitis C Virus Antibody 0.05 S/C
[2022-05-16 21:01] LABS: GGT 9 U/L (3-65)
[2022-05-18 23:22] LABS: ALT 8 U/L (6-29); Alpha-2-Macroglobulin 123 mg/dL (106-279); Apolipoprotein A1 156 mg/dL (101-198); Fibrosis Score 0.06; Fibrosis Stage F0; GGT 9 U/L (3-65); Haptoglobin 208 mg/dL (43-212); Necroinflammat Act Grade A0; Total Bilirubin 0.8 mg/dL (0.2-1.2)
[2022-05-20 09:57] LABS: Tissue Transglutaminase IgA Ab <1.0 U/mL (<15.0)
[2022-05-20 13:30] LABS: Tissue Transglutaminase IgG Ab <1.0 U/mL (<15.0)
== END 2022-05-13 10:43 | disposition home or self-care (01) ==
LOC: ANHLAB 10:43
PROVIDERS: PCP Family Medicine; Visit Provider Nurse Practitioner
DX: K52.9 Noninfective gastroenteritis and colitis, unspecified (principal); E80.6 Other disorders of bilirubin metabolism
CPT/HCPCS: 36415; 80074; 80076; 81596; 82977; 83516; 85610

== ENCOUNTER 2022-05-26 12:24 | Outpatient (CLI) | payer OTHER, SELFPAY ==
[2022-05-26 13:12] LABS: Alanine Aminotransferase 19 U/L (14-59); Albumin Level 3.8 g/dL (3.4-5.0); Alkaline Phosphatase 85 U/L (46-116); Anion Gap 7 mmol/L (8-16); Aspartate Amino Transferase 18 U/L (15-37); Bilirubin,Total 0.9 mg/dL (0.00-1.00); Blood Urea Nitrogen 8 mg/dL (7-18); Calcium 9.5 mg/dL (8.5-10.1); Carbon Dioxide 37 mmol/L (21-32); Chloride 93 mmol/L (98-108); Estimated Glomerular Filt Rate > 60; Glucose 224 mg/dL (70-99); Osmolality Calculated 289 mOsm/kg (285-295); Potassium 3.9 mmol/L (3.5-5.1); Sodium 137 mmol/L (136-145); Total Protein 6.7 g/dL (6.4-8.2)
[2022-05-27 15:15] LABS: Magnesium 1.6 mg/dL (1.8-2.4)
== END 2022-05-26 12:25 | disposition home or self-care (01) ==
LOC: CHSLAB 12:26
PROVIDERS: PCP Family Medicine; Visit Provider Family Medicine
DX: E87.6 Hypokalemia (principal); K57.92 Diverticulitis of intestine, part unspecified, without perforation or abscess without bleeding
CPT/HCPCS: 36415; 80053; 83735

== ENCOUNTER 2023-01-04 10:42 | Outpatient (CLI) | payer OTHER, SELFPAY ==
[2023-01-04 11:02] LABS: Basophils Absolute Auto 0.03 K/mm3 (0.00-0.10); Basophils Percent Auto 0.5 % (0.0-1.0); Eosinophils Absolute Auto 0.19 K/mm3 (0.02-0.50); Eosinophils Percent Auto 3.3 % (1.0-6.0); Hematocrit 45.5 % (35.0-49.0); Hemoglobin 14.3 g/dL (12.0-15.0); Immature Granulocyte Absolute 0.01 K/mm3 (0.00-0.00); Immature Granulocyte Percent A 0.2 % (0.0-0.0); Lymphocytes Absolute Auto 0.67 K/mm3 (1.10-4.50); Lymphocytes Percent Auto 11.5 % (18.0-42.0); Mean Corpuscular HGB Conc 31.4 g/dL (32.0-36.0); Mean Corpuscular Volume 98.5 fL (78.0-102.0); Mean Platelet Volume 10.9 fl (9.2-11.8); Monocytes Absolute Auto 0.64 K/mm3 (0.10-0.90); Neutrophils Absolute Auto 4.3 K/mm3 (1.7-7.2); Neutrophils Percent Auto 73.5 % (50.0-70.0); Platelet Count Result 176 K/mm3 (150-420); Red Blood Count 4.62 M/mm3 (4.20-5.40); Red Cell Distribution Width 13.2 % (11.6-14.4); White Blood Count 5.8 K/mm3 (4.8-10.8)
[2023-01-04 11:36] LABS: Alanine Aminotransferase 20 U/L (14-59); Albumin Level 3.9 g/dL (3.4-5.0); Alkaline Phosphatase 84 U/L (46-116); Amylase 49 U/L (25-115); Anion Gap 6 mmol/L (8-16); Aspartate Amino Transferase 24 U/L (15-37); Bilirubin,Total 1.3 mg/dL (0.00-1.00); Blood Urea Nitrogen 15 mg/dL (7-18); Calcium 9.2 mg/dL (8.5-10.1); Carbon Dioxide 37 mmol/L (21-32); Chloride 97 mmol/L (98-108); Estimated Glomerular Filt Rate > 60; Glucose 140 mg/dL (70-99); Lipase 31 U/L (16-77); Osmolality Calculated 292 mOsm/kg (285-295); Potassium 3.5 mmol/L (3.5-5.1); Sodium 140 mmol/L (136-145)
== END 2023-01-04 10:43 | disposition home or self-care (01) ==
PROVIDERS: PCP Family Medicine; Visit Provider Family Medicine
DX: R11.2 Nausea with vomiting, unspecified (principal); R19.7 Diarrhea, unspecified
CPT/HCPCS: 36415; 80053; 82150; 83690; 85025

== ENCOUNTER 2023-01-05 13:49 | Outpatient (CLI) | payer OTHER, SELFPAY ==
[2023-01-05 14:08] LABS: Appearance Urine Clear (Clear); Bilirubin Urine Negative (Negative); Blood Urine Negative (Negative); Color Urine Yellow (Yellow); Glucose Urine UA Negative (Negative); Ketones Urine Negative (Negative); Leukocyte Esterase Ur Trace LEU/UL (Negative); Nitrate Urine Negative (Negative); Protein Urine Negative (Negative); Urobilinogen Urine 0.2 mg/dL (0.2-1.0)
[2023-01-05 14:20] LABS: Add Urine Microscopic? YES; Bacteria Urine 1+ /hpf; Mucus Urine Moderate /lpf; RBC Urine None seen /hpf (0-2); Squamous Epithelial Cell Urine Few /hpf (Few)
== END 2023-01-05 13:50 | disposition home or self-care (01) ==
LOC: CHSLAB 13:50
PROVIDERS: PCP Family Medicine; Visit Provider Family Medicine
DX: R11.2 Nausea with vomiting, unspecified (principal); R19.7 Diarrhea, unspecified
CPT/HCPCS: 81001; 87045; 87086; 87088; 87324; 87427

== ENCOUNTER 2023-04-01 11:53 | Outpatient (CLI) | payer OTHER, SELFPAY ==
[2023-04-01 12:15] LABS: Basophils Absolute Auto 0.03 K/mm3 (0.00-0.10); Basophils Percent Auto 0.2 % (0.0-1.0); Hemoglobin 13.1 g/dL (12.0-15.0); Immature Granulocyte Absolute 0.03 K/mm3 (0.00-0.00); Immature Granulocyte Percent A 0.2 % (0.0-0.0); Lymphocytes Absolute Auto 0.87 K/mm3 (1.10-4.50); Lymphocytes Percent Auto 6.5 % (18.0-42.0); Mean Corpuscular HGB Conc 30.5 g/dL (32.0-36.0); Mean Corpuscular Volume 101.9 fL (78.0-102.0); Mean Platelet Volume 10.5 fl (9.2-11.8); Monocytes Absolute Auto 0.85 K/mm3 (0.10-0.90); Monocytes Percent Auto 6.4 % (2.0-11.0); Neutrophils Absolute Auto 11.5 K/mm3 (1.7-7.2); Neutrophils Percent Auto 86.7 % (50.0-70.0); Platelet Count Result 215 K/mm3 (150-420); Red Blood Count 4.22 M/mm3 (4.20-5.40); White Blood Count 13.3 K/mm3 (4.8-10.8)
[2023-04-01 12:40] LABS: Hemoglobin A1C 6.4 % (<5.7)
[2023-04-01 13:11] LABS: Alanine Aminotransferase 29 U/L (14-59); Albumin Level 3.6 g/dL (3.4-5.0); Alkaline Phosphatase 64 U/L (46-116); Anion Gap 2 mmol/L (8-16); Aspartate Amino Transferase 15 U/L (15-37); Bilirubin,Total 1.4 mg/dL (0.00-1.00); Blood Urea Nitrogen 14 mg/dL (7-18); Calcium 9.1 mg/dL (8.5-10.1); Carbon Dioxide 44 mmol/L (21-32); Chloride 96 mmol/L (98-108); Estimated Glomerular Filt Rate > 60; Glucose 184 mg/dL (70-99); Osmolality Calculated 299 mOsm/kg (285-295); Potassium 4.1 mmol/L (3.5-5.1); Sodium 142 mmol/L (136-145); Total Protein 6.3 g/dL (6.4-8.2)
== END 2023-04-01 11:54 | disposition home or self-care (01) ==
LOC: CHSLAB 11:57
PROVIDERS: PCP Family Medicine; Visit Provider Family Medicine
DX: E11.42 Type 2 diabetes mellitus with diabetic polyneuropathy (principal)
CPT/HCPCS: 36415; 80053; 83036; 85025

== ENCOUNTER 2023-05-30 12:58 | Outpatient (CLI) | payer OTHER, SELFPAY | END 2023-05-30 12:59 | disposition home or self-care (01) | LOC: CHSCARD 13:01 | PROVIDERS: PCP Family Medicine; Visit Provider Family Medicine | DX: J44.9 Chronic obstructive pulmonary disease, unspecified (principal) | CPT/HCPCS: 94060; 94726; 94729 ==

== ENCOUNTER 2024-02-07 15:02 | Outpatient (CLI) | payer MEDICARE, SELFPAY ==
--- NOTE | ~2024-02-07 | MM_ITS ---
EXAMINATION: MM screening luis BI w nash HISTORY: Screening mammogram TECHNIQUE: Craniocaudal and mediolateral oblique 3-D tomosynthesis images were obtained and synthetic 2-D images were generated. CAD analysis was submitted and interpreted. COMPARISON: No prior mammogram is available for comparison at this institution. BREAST PARENCHYMAL COMPOSITION: There are scattered areas of fibroglandular density. FINDINGS: There is no evidence of suspicious mass, calcification, or architectural distortion to sugg est malignancy in either breast. IMPRESSION: 1. No mammographic evidence of malignancy. 2. Recommend routine screening mammography in one year. BI-RADS Category 1: Negative Reviewed, dictated and finalized at location A.
== END 2024-02-07 15:03 | disposition home or self-care (01) ==
LOC: CHSIMG 15:10
PROVIDERS: PCP Family Medicine; Visit Provider Family Medicine
DX: Z12.31 Encounter for screening mammogram for malignant neoplasm of breast (principal)
CPT/HCPCS: 77063; 77067

== ENCOUNTER 2024-05-11 10:28 | Outpatient (CLI) | payer MEDICARE, MEDICAID, SELFPAY ==
--- NOTE | ~2024-05-11 | XR_ITS ---
3 VIEWS LUMBAR SPINE Ordering provider: Gwyn Jain MD History: . Low back pain x3 weeks/dorsalgia, NKI . Comparison: None. FINDINGS: VERTEBRAL BODIES: No visible fracture or subluxation. Degenerative changes of the spine. DISK SPACES: Narrowing of the disc L5-S1. SOFT TISSUES: Normal. IMPRESSION: No acute osseous abnormality lumbar spine. Degenerative disc disease at the level of L5-S1. Reviewed, dictated and finalized at location A.
[2024-05-11 11:13] LABS: Basophils Absolute Auto 0.06 K/mm3 (0.00-0.10); Basophils Percent Auto 0.7 % (0.0-1.0); Hematocrit 46.3 % (35.0-42.0); Hemoglobin 14.4 g/dL (11.7-13.8); Immature Granulocyte Absolute 0.01 K/mm3 (0.00-0.00); Immature Granulocyte Percent A 0.1 % (0.0-0.0); Lymphocytes Absolute Auto 1.37 K/mm3 (1.10-4.50); Lymphocytes Percent Auto 16.2 % (18.0-42.0); Mean Corpuscular HGB Conc 31.1 g/dL (32-36); Mean Corpuscular Hemoglobin 30.8 pg (27.0-31.0); Mean Corpuscular Volume 98.9 fL (78.0-102.0); Mean Platelet Volume 10.5 fl (9.2-11.8); Monocytes Absolute Auto 0.67 K/mm3 (0.10-0.90); Monocytes Percent Auto 7.9 % (2.0-11.0); Neutrophils Absolute Auto 6.34 K/mm3 (1.70-7.20); Neutrophils Percent Auto 75.1 % (50.0-70.0); Platelet Count Result 222 K/mm3 (150-420); Red Blood Count 4.68 M/mm3 (4.20-5.40); White Blood Count 8.5 K/mm3 (4.8-10.8)
[2024-05-11 11:18] LABS: Creatinine Urine < 13.00 mg/dL (40-278); Microalbumin Urine Random < 13.0 mg/L
[2024-05-11 11:42] LABS: Anion Gap 2 mmol/L (4-12); Blood Urea Nitrogen 13 mg/dL (7-18); Calcium 8.8 mg/dL (8.5-10.1); Carbon Dioxide 39 mmol/L (21-32); Chloride 97 mmol/L (98-108); Estimated Glomerular Filt Rate > 60; Glucose 113 mg/dL (70-99); Osmolality Calculated 287 mOsm/kg (285-295); Potassium 3.7 mmol/L (3.5-5.1); Sodium 138 mmol/L (136-145)
== END 2024-05-11 10:29 | disposition home or self-care (01) ==
PROVIDERS: PCP Family Medicine; Visit Provider Family Medicine
DX: R60.0 Localized edema (principal); Z68.25 Body mass index [BMI] 25.0-25.9, adult; M54.9 Dorsalgia, unspecified; M51.37 Other intervertebral disc degeneration, lumbosacral region
CPT/HCPCS: 36415; 72100; 80048; 82043; 85025; 87086

== ENCOUNTER 2024-05-26 10:35 | Outpatient (CLI) | payer MEDICARE, MEDICAID, SELFPAY ==
--- NOTE | ~2024-05-26 | MR_ITS ---
EXAMINATION: MR lumbar spine wo con DATE: 05/26/2024 11:24 INDICATION: Low back pain. TECHNIQUE: Magnetic resonance imaging (MRI) of the lumbar spine was performed without intravenous con trast. Sequences included sagittal T2-weighted FSE, sagittal T2-weighted FS FSE, sagittal T1-weighted FSE, and axial T2-weighted FSE. COMPARISON: Lumbar spine radiographs 05/11/2024 FINDINGS: There is 3 mm retrolisthesis of L5 on S1. Vertebral body heights are normal. There is sever eileen decreased disc height at L5-S1. The distal spinal cord signal intensity is normal. The conus medu llaris is at L2. The following disc levels are specifically discussed: L1-L2: The disc does not extend beyond the endplate margin. There is moderate bilateral facet joint o steoarthritis. There is no neural foraminal stenosis. There is no central canal stenosis. L2-L3: The disc does not extend beyond the endplate margin. There is mild bilateral facet joint osteo arthritis. There is no neural foraminal stenosis. There is no central canal stenosis. L3-L4: The disc is bulging. There is moderate bilateral facet joint osteoarthritis. There is mild jamila ateral neural foraminal stenosis. There is mild central canal stenosis. L4-L5: The disc is bulging. There is moderate right and severe left facet joint osteoarthritis. There is mild bilateral neural foraminal stenosis. There is mild central canal stenosis. L5-S1: The disc is bulging. There is severe bilateral facet joint osteoarthritis. There is moderate b ilateral neural foraminal stenosis. There is mild central canal stenosis. IMPRESSION: 1. Severe lower lumbar spondylosis. Reviewed, dictated and finalized at location E.
== END 2024-05-26 10:36 | disposition home or self-care (01) ==
PROVIDERS: PCP Family Medicine; Visit Provider Family Medicine
DX: M54.9 Dorsalgia, unspecified (principal); M48.061 Spinal stenosis, lumbar region without neurogenic claudication; M43.06 Spondylolysis, lumbar region
CPT/HCPCS: 72148

== ENCOUNTER 2024-07-17 08:55 | Outpatient (CLI) | payer MEDICARE, MEDICAID, SELFPAY ==
--- NOTE | ~2024-07-17 | XR_ITS ---
Clinical Indication: COPD, shortness of breath PA and lateral views of the chest: Comparison: 03/16/2022 Findings: The lungs are clear, without evidence of focal consolidation or pleural effusion. Stable CO PD pattern. Cardiomediastinal silhouette is within normal limits. Bones and soft tissues are unremark able. Impression: Stable COPD pattern. No acute abnormality seen. Reviewed, dictated and finalized at location M. Impression: Stable COPD pattern. No acute abnormality seen.
== END 2024-07-17 08:56 | disposition home or self-care (01) ==
PROVIDERS: PCP Family Medicine; Visit Provider Family Medicine
DX: J44.1 Chronic obstructive pulmonary disease with (acute) exacerbation (principal)
CPT/HCPCS: 71046

== ENCOUNTER 2025-01-08 11:50 | Outpatient (CLI) | payer MEDICARE, SELFPAY ==
[2025-01-08 12:09] LABS: Basophils Absolute Auto 0.01 K/mm3 (0.00-0.10); Basophils Percent Auto 0.1 % (0.0-1.0); Eosinophils Absolute Auto 0.01 K/mm3 (0.02-0.50); Eosinophils Percent Auto 0.1 % (1.0-6.0); Hematocrit 47.2 % (35.0-42.0); Hemoglobin 13.7 g/dL (11.7-13.8); Immature Granulocyte Absolute 0.02 K/mm3 (0.00-0.00); Immature Granulocyte Percent A 0.3 % (0.0-0.0); Lymphocytes Absolute Auto 1.03 K/mm3 (1.10-4.50); Lymphocytes Percent Auto 14.3 % (18.0-42.0); Mean Corpuscular Hemoglobin 29.2 pg (27.0-31.0); Mean Corpuscular Volume 100.6 fL (78.0-102.0); Mean Platelet Volume 10.3 fl (9.2-11.8); Monocytes Absolute Auto 0.48 K/mm3 (0.10-0.90); Monocytes Percent Auto 6.6 % (2.0-11.0); Neutrophils Absolute Auto 5.67 K/mm3 (1.70-7.20); Neutrophils Percent Auto 78.6 % (50.0-70.0); Platelet Count Result 225 K/mm3 (150-420); Red Blood Count 4.69 M/mm3 (4.20-5.40); White Blood Count 7.2 K/mm3 (4.8-10.8)
[2025-01-08 12:15] LABS: Add Urine Microscopic? NO; Appearance Urine Clear (Clear); Bilirubin Urine Negative (Negative); Blood Urine Trace-intact (Negative); Color Urine Light Yellow (Yellow); Glucose Urine UA Negative (Negative); Ketones Urine Negative (Negative); Leukocyte Esterase Ur Negative (Negative); Nitrate Urine Negative (Negative); Protein Urine Negative (Negative); Specific Grav Ur 1.015 (1.010-1.020)
[2025-01-08 12:18] LABS: Hemoglobin A1C 6.8 % (<5.7)
[2025-01-08 12:29] LABS: Creatinine Urine 31.64 mg/dL (40-278); Microalbumin Urine Random < 13.0 mg/L
[2025-01-08 12:45] LABS: Alanine Aminotransferase 21 U/L (14-59); Albumin Level 3.4 g/dL (3.4-5.0); Alkaline Phosphatase 71 U/L (46-116); Anion Gap 0 mmol/L (4-12); Aspartate Amino Transferase < 10 U/L (15-37); Bilirubin,Total 1.6 mg/dL (0.00-1.00); Blood Urea Nitrogen 13 mg/dL (7-18); Carbon Dioxide 45 mmol/L (21-32); Chloride 92 mmol/L (98-108); Estimated Glomerular Filt Rate > 60; Glucose 202 mg/dL (70-99); Osmolality Calculated 290 mOsm/kg (285-295); Potassium 4.2 mmol/L (3.5-5.1); Sodium 137 mmol/L (136-145); Thyroid Stimulating Hormone 1.54 uIU/mL (0.36-3.74); Total Protein 6.2 g/dL (6.4-8.2)
--- OUTSIDE RECORDS SUMMARY | 2025-01-08 14:01 | XMS_ITS | Clinical Summary ---
Author Organization [facility] Address [address] [place] [address] Care Team Providers Care Sheet Rock Applicator Name Role Phone None, Provider MD Primary Care Provider Unavaila ble Allergies No known active allergies Medications simvastatin (ZOCOR) 20 MG tablet Take 1 tablet (20 mg total) by mouth nightly at bedtime. Active lisinopril-hydr oCHLOROthiazide (ZESTORETIC) 10-12.5 MG tablet Take 1 tablet by mouth daily. Active potassium chloride CR (MICRO-K) 10 MEQ CR capsule Take 1 capsule (10 mEq total) by mouth 2 (two) times daily. Active famotidine (PEPCID) 20 MG tablet Take 1 tablet (20 mg total) by mouth nightly at bedtime. Active furosemide (LASIX) 20 MG tablet Take 1 tablet (20 mg total) by mouth daily. Active citalopram (CELEXA) 20 MG tablet Take 2 tablets (40 mg total) by mouth daily. Active pioglitazone (ACTOS) 30 MG tablet Take 1 tablet (30 mg total) by mouth daily. Active fluticasone-ray meterol (ADVAIR HFA) 45-21 MCG/ACT inhaler Inhale 2 puffs into the lungs 2 (two) times daily. Active Active Problems Problem Noted Date Diagnosed Date COPD exacerbation ([facility]) 10/10/2024 Encounters Date Type Department Care Team Description 10/29/2024 Telephone [facility] [address] [place] [address] Non-Staff, Provider Appointment Request 10/11/2024 12:39 AM RESTAURANT AND BAR MANAGER - 10/18/2024 1:14 PM RESTAURANT AND BAR MANAGER Hospital Encounter [facility] [address] [place] [address] Amber Horne MD Boddu, Lavanya, MD Discharge Disposition: Home or Self Care (Routine Discharge) 10/11/2024 Travel 10/10/2024 3:55 AM RESTAURANT AND BAR MANAGER - 10/10/2024 11:06 PM [facility] Emergency [facility] [address] [place] [address] Yehuda Eaton DO Baum, Jamie L, MD Shortness Of Breath Discharge Disposition: Another Health Care Institution Not Defined 10/10/2024 Travel from Last 3 Months Family History Medical History Relation Comments Cancer Father Heart Disease Mother Hypertension Mother Stroke Mother Cancer Sister Heart Disease Sister Relation Status Comments Father Mother Sister Social History Tobacco Use Types Packs/Day Years Used Date Smoking Tobacco: Every Day Cigarettes Smokeless Tobacco: Never Tobacco Cessation:Ready to Q uit: Not Asked; Counseling Given: Not Answered Alcohol Use Standard Drinks/Week Comments Not Currently 0 (1 standard drink = 0.6 oz pur e alcohol) [facility] Utilities Answer Date Recorded In the past 12 months has [facility] [employer], gas, oil, or water [employer] threatened to shut off services in your home? Patient declined 10/12/2024 Humiliation, Afraid, Rape, and Kick questionnair e Answer Date Recorded Within the last year, have y ou been afraid of your partner or ex-partner? Patient declined 10/12/2024 Within the last year, have y ou been humiliated or emotionally abused in other ways by your partner or ex-partner? Patient declined 10/12/2024 Within the last year, have y ou been kicked, hit, slapped, or otherwise physically hurt by your partner or ex-partner? Patient declined 10/12/2024 Within the last year, have y ou been raped or forced to have any kind of sexual activity by your partner or ex-partner? Patient declined 10/12/2024 Overall Financial Resource Strain (CARDIA) Answe r Date Recorded How hard is it for you to pa y for the very basics like food, housing, medical care, and heating? Patient declined 10/12/2024 Hunger Vital Sign Answer Date Recorded Within the past 12 months, y ou worried that your food would run out before you got the money to buy more. Patient declined Within the past 12 months, t he food you bought just didn't last and you didn't have money to get more. Patient declined PRAPARE - Transportation Answer Date Re corded In the past 12 months, has l ack of transportation kept you from medical appointments or from getting medications? Patient declined 10/12/2024 In the past 12 months, has l ack of transportation kept you from meetings, work, or from getting things needed for daily living? Patient declined 10/12/2024 Housing Stability Vital Sign Answer Fran e Recorded In the last 12 months, was t here a time when you were not able to pay the mortgage or rent on time? Patient declined 10/12/20 24 In the past 12 months, how m any times have you moved where you were living? 0 10/12/2024 At any time in the past 12 m [facility], were you homeless or living in a care home (including now)? Patient declined 10/12/2024 Comments Unknown Sex and Gender Information Value Date Recorded Sex Assigned at Not on file Legal Sex Female 4:15 PM CDT Gender Identity Not on file Sexual Orientation Not on file Occupation Industry Job Start Date Job End Date retired Not on file Not on file Not on file Last Filed Vital Signs Vital Sign Reading Time Taken Comments Blood Pressure 123/62 10/18/2024 8:34 AM RESTAURANT AND BAR MANAGER Pulse 76 10/18/2024 8:34 AM RESTAURANT AND BAR MANAGER Temperature 36.9 C (98.5 F) 10/18/2024 8:34 AM RESTAURANT AND BAR MANAGER Respiratory Rate 16 10/18/2024 8:34 AM RESTAURANT AND BAR MANAGER Oxygen Saturation 95% 10/18/2024 8:34 AM RESTAURANT AND BAR MANAGER Inhaled Oxygen Concentration - - Weight 56.8 kg (125 lb 3.5 oz) 10/18/2024 5:00 A M RESTAURANT AND BAR MANAGER Height 152.4 cm (5') 10/11/2024 12:56 AM RESTAURANT AND BAR MANAGER Body Mass Index 24.46 10/11/2024 12:56 AM RESTAURANT AND BAR MANAGER Plan of Treatment Health Maintenance Due Date Last Done Comments Colorectal Cancer Screening Colonoscopy (10 Years) 1958 Pneumococcal Vaccine: 65+ Years (1 of 2 - PCV) 1964 Hepatitis C 1976 DTaP, Tdap and Td Vaccines ( 1 - Tdap) 1977 Mammogram Screening 1998 RSV Immunization or 60+ Years (1 - Risk 60-74 years 1-dose series) 2018 Annual Medicare Wellness Visit 2023 Dexa Scan (General) 2023 COVID-19 Vaccine (3 - 2023-2 5 season) 2024 04/10/2021, 03/20/2021 Zoster Vaccines (2 of 2) 06/30/2024 05/05/2024 Influenza Adult (#1) 2024 Meningococcal B Vaccine Aged Out No l onger eligible based on patient's age to complete this topic Meningococcal Vaccine Aged Out No bairon marlin eligible based on patient's age to complete this topic RSV Immunizations Under 20 Months Aged Out No longer eligible b ased on patient's age to complete this topic Procedures Procedure Name Priority Date/Time Associated Diagnosis Comments POCT GLUCOSE - MORGAN DOCKED DEVICE Routine 10/18/2024 11:35 AM RESTAURANT AND BAR MANAGER COMPREHENSIVE METABOLIC PANEL Routine 10/18/2024 6:57 AM RESTAURANT AND BAR MANAGER CBC W/DIFF AUTOMATED Routine 10/18/2024 6:57 AM RESTAURANT AND BAR MANAGER BLOOD GAS, VENOUS Routine 10/18/2024 6:5 7 AM RESTAURANT AND BAR MANAGER PHOSPHORUS, INORGANIC PHOSPHATE Routine 10/18/2024 6:57 AM RESTAURANT AND BAR MANAGER MAGNESIUM Routine 10/18/2024 6:57 AM RESTAURANT AND BAR MANAGER POCT GLUCOSE - MORGAN DOCKED DEVICE Routine 10/18/2024 6:15 AM RESTAURANT AND BAR MANAGER POCT GLUCOSE - MORGAN DOCKED DEVICE Routine 10/17/2024 9:20 PM RESTAURANT AND BAR MANAGER POCT GLUCOSE - MORGAN DOCKED DEVICE Routine 10/17/2024 3:46 PM RESTAURANT AND BAR MANAGER POCT GLUCOSE - MORGAN DOCKED DEVICE Routine 10/17/2024 11:10 AM RESTAURANT AND BAR MANAGER COMPREHENSIVE METABOLIC PANEL Routine 10/17/2024 10:08 AM RESTAURANT AND BAR MANAGER CBC W/DIFF AUTOMATED Routine 10/17/2024 10:08 AM RESTAURANT AND BAR MANAGER POCT GLUCOSE - MORGAN DOCKED DEVICE Routine 10/17/2024 6:00 AM RESTAURANT AND BAR MANAGER BLOOD GAS, VENOUS Routine 10/17/2024 5:0 0 AM RESTAURANT AND BAR MANAGER PHOSPHORUS, INORGANIC PHOSPHATE Routine 10/17/2024 5:00 AM RESTAURANT AND BAR MANAGER MAGNESIUM Routine 10/17/2024 5:00 AM RESTAURANT AND BAR MANAGER POCT GLUCOSE - MORGAN DOCKED DEVICE Routine 10/16/2024 8:54 PM RESTAURANT AND BAR MANAGER POCT GLUCOSE - MORGAN DOCKED DEVICE Routine 10/16/2024 3:10 PM RESTAURANT AND BAR MANAGER POCT GLUCOSE - MORGAN DOCKED DEVICE Routine 10/16/2024 11:40 AM RESTAURANT AND BAR MANAGER BLOOD GAS, ARTERIAL LAB Routine 10/16/2024 11:30 AM RESTAURANT AND BAR MANAGER BEDSIDE SPIROMETRY Routine 10/16/2024 10 :23 AM RESTAURANT AND BAR MANAGER POCT GLUCOSE - MORGAN DOCKED DEVICE Routine 10/16/2024 6:01 AM RESTAURANT AND BAR MANAGER BLOOD GAS, VENOUS Routine 10/16/2024 4:2 6 AM RESTAURANT AND BAR MANAGER PHOSPHORUS, INORGANIC PHOSPHATE Routine 10/16/2024 4:26 AM RESTAURANT AND BAR MANAGER MAGNESIUM Routine 10/16/2024 4:26 AM RESTAURANT AND BAR MANAGER COMPREHENSIVE METABOLIC PANEL Routine 10/16/2024 4:26 AM RESTAURANT AND BAR MANAGER CBC W/DIFF AUTOMATED Routine 10/16/2024 4:26 AM RESTAURANT AND BAR MANAGER BLOOD GAS, ARTERIAL LAB Routine 10/15/2024 11:47 PM RESTAURANT AND BAR MANAGER POCT GLUCOSE - MORGAN DOCKED DEVICE Routine 10/15/2024 9:39 PM RESTAURANT AND BAR MANAGER POCT GLUCOSE - MORGAN DOCKED DEVICE Routine 10/15/2024 4:27 PM RESTAURANT AND BAR MANAGER POCT GLUCOSE - MORGAN DOCKED DEVICE Routine 10/15/2024 11:11 AM RESTAURANT AND BAR MANAGER BLOOD GAS, VENOUS Routine 10/15/2024 10: 22 AM RESTAURANT AND BAR MANAGER POCT GLUCOSE - MORGAN DOCKED DEVICE Routine 10/15/2024 6:10 AM RESTAURANT AND BAR MANAGER PHOSPHORUS, INORGANIC PHOSPHATE Routine 10/15/2024 4:35 AM RESTAURANT AND BAR MANAGER MAGNESIUM Routine 10/15/2024 4:35 AM RESTAURANT AND BAR MANAGER COMPREHENSIVE METABOLIC PANEL Routine 10/15/2024 4:35 AM RESTAURANT AND BAR MANAGER CBC W/DIFF AUTOMATED Routine 10/15/2024 4:35 AM RESTAURANT AND BAR MANAGER POCT GLUCOSE - MORGAN DOCKED DEVICE Routine 10/14/2024 8:15 PM RESTAURANT AND BAR MANAGER POCT GLUCOSE - MORGAN DOCKED DEVICE Routine 10/14/2024 4:20 PM RESTAURANT AND BAR MANAGER POCT GLUCOSE - MORGAN DOCKED DEVICE Routine 10/14/2024 11:47 AM RESTAURANT AND BAR MANAGER BLOOD GAS, VENOUS STAT 10/14/2024 10: 43 AM RESTAURANT AND BAR MANAGER POCT GLUCOSE - MORGAN DOCKED DEVICE Routine 10/14/2024 6:17 AM RESTAURANT AND BAR MANAGER PHOSPHORUS, INORGANIC PHOSPHATE Routine 10/14/2024 5:14 AM RESTAURANT AND BAR MANAGER MAGNESIUM Routine 10/14/2024 5:14 AM RESTAURANT AND BAR MANAGER COMPREHENSIVE METABOLIC PANEL Routine 10/14/2024 5:14 AM RESTAURANT AND BAR MANAGER CBC W/DIFF AUTOMATED Routine 10/14/2024 5:14 AM RESTAURANT AND BAR MANAGER POCT GLUCOSE - MORGAN DOCKED DEVICE Routine 10/13/2024 9:28 PM RESTAURANT AND BAR MANAGER POCT GLUCOSE - MORGAN DOCKED DEVICE Routine 10/13/2024 5:22 PM RESTAURANT AND BAR MANAGER POCT GLUCOSE - MORGAN DOCKED DEVICE Routine 10/13/2024 11:00 AM RESTAURANT AND BAR MANAGER POCT ACUTE VENOUS PANEL Routine 10/13/2024 8:13 AM RESTAURANT AND BAR MANAGER POCT GLUCOSE - MORGAN DOCKED DEVICE Routine 10/13/2024 5:32 AM RESTAURANT AND BAR MANAGER COMPREHENSIVE METABOLIC PANEL Routine 10/13/2024 5:25 AM RESTAURANT AND BAR MANAGER CBC W/DIFF AUTOMATED Routine 10/13/2024 5:25 AM RESTAURANT AND BAR MANAGER PHOSPHORUS, INORGANIC PHOSPHATE Routine 10/13/2024 5:25 AM RESTAURANT AND BAR MANAGER MAGNESIUM Routine 10/13/2024 5:25 AM RESTAURANT AND BAR MANAGER POCT GLUCOSE - MORGAN DOCKED DEVICE Routine 10/13/2024 2:15 AM RESTAURANT AND BAR MANAGER POCT GLUCOSE - MORGAN DOCKED DEVICE Routine 10/12/2024 8:49 PM RESTAURANT AND BAR MANAGER POCT GLUCOSE - MORGAN DOCKED DEVICE Routine 10/12/2024 4:11 PM RESTAURANT AND BAR MANAGER POCT ACUTE VENOUS PANEL Routine 10/12/2024 12:16 PM RESTAURANT AND BAR MANAGER CULTURE LOWER RESPIRATORY W/GRAM STAIN Nurse Collected Priority 10/12/2024 11:21 AM RESTAURANT AND BAR MANAGER POCT GLUCOSE - MORGAN DOCKED DEVICE Routine 10/12/2024 11:17 AM RESTAURANT AND BAR MANAGER POCT ACUTE VENOUS PANEL Routine 10/12/2024 8:19 AM RESTAURANT AND BAR MANAGER POCT ACUTE VENOUS PANEL Routine 10/12/2024 4:18 AM RESTAURANT AND BAR MANAGER COMPREHENSIVE METABOLIC PANEL Routine 10/12/2024 4:15 AM RESTAURANT AND BAR MANAGER CBC W/DIFF AUTOMATED Routine 10/12/2024 4:15 AM RESTAURANT AND BAR MANAGER PHOSPHORUS, INORGANIC PHOSPHATE Routine 10/12/2024 4:15 AM RESTAURANT AND BAR MANAGER MAGNESIUM Routine 10/12/2024 4:15 AM RESTAURANT AND BAR MANAGER POCT GLUCOSE - MORGAN DOCKED DEVICE Routine 10/12/2024 12:48 AM RESTAURANT AND BAR MANAGER POCT ACUTE VENOUS PANEL Routine 10/12/2024 12:41 AM RESTAURANT AND BAR MANAGER POCT ACUTE VENOUS PANEL Routine 10/11/2024 8:25 PM RESTAURANT AND BAR MANAGER HC URINALYSIS AUTO W/MICRO Nurse Collected Priority 10/11/2024 6:00 PM RESTAURANT AND BAR MANAGER POCT ACUTE VENOUS PANEL Routine 10/11/2024 3:18 PM RESTAURANT AND BAR MANAGER POCT GLUCOSE - MORGAN DOCKED DEVICE Routine 10/11/2024 3:16 PM RESTAURANT AND BAR MANAGER POCT ACUTE VENOUS PANEL Routine 10/11/2024 12:12 PM RESTAURANT AND BAR MANAGER POCT GLUCOSE - MORGAN DOCKED DEVICE Routine 10/11/2024 11:40 AM RESTAURANT AND BAR MANAGER POCT ACUTE VENOUS PANEL Routine 10/11/2024 11:39 AM RESTAURANT AND BAR MANAGER USE ECHOCARDIOGRAM Routine 10/11/2024 10 :19 AM RESTAURANT AND BAR MANAGER MRSA SCREENING Nurse Collected Priority 10/11/2024 8:19 AM RESTAURANT AND BAR MANAGER ECG 12-LEAD Routine 10/11/2024 5:56 AM RESTAURANT AND BAR MANAGER POCT ACUTE VENOUS PANEL Routine 10/11/2024 5:51 AM RESTAURANT AND BAR MANAGER POCT GLUCOSE - MORGAN DOCKED DEVICE Routine 10/11/2024 5:48 AM RESTAURANT AND BAR MANAGER POCT ACUTE VENOUS PANEL Routine 10/11/2024 2:30 AM RESTAURANT AND BAR MANAGER POCT GLUCOSE - MORGAN DOCKED DEVICE Routine 10/11/2024 2:24 AM RESTAURANT AND BAR MANAGER HEMOGLOBIN, GLYCOSYLATED Routine 10/11/2024 2:20 AM RESTAURANT AND BAR MANAGER COMPREHENSIVE METABOLIC PANEL Routine 10/11/2024 2:20 AM RESTAURANT AND BAR MANAGER CBC W/DIFF AUTOMATED Routine 10/11/2024 2:20 AM RESTAURANT AND BAR MANAGER CALCIUM, IONIZED Routine 10/11/2024 2:20 AM RESTAURANT AND BAR MANAGER THYROID STIM HORMONE TSH Routine 10/11/2024 2:20 AM RESTAURANT AND BAR MANAGER PHOSPHORUS, INORGANIC PHOSPHATE Routine 10/11/2024 2:20 AM RESTAURANT AND BAR MANAGER LACTIC ACID Routine 10/11/2024 2:20 AM RESTAURANT AND BAR MANAGER MAGNESIUM Routine 10/11/2024 2:20 AM RESTAURANT AND BAR MANAGER TROPONIN, QUANT Routine 10/11/2024 2:20 AM RESTAURANT AND BAR MANAGER POCT ARTERIAL BLOOD GAS Routine 10/10/2024 2:37 PM RESTAURANT AND BAR MANAGER POCT GLUCOSE - MORGAN DOCKED DEVICE Routine 10/10/2024 2:31 PM RESTAURANT AND BAR MANAGER I-STAT BLOOD GAS CG4 PLUS STAT 10/10/2024 2:20 PM RESTAURANT AND BAR MANAGER CRITICAL CARE Routine 10/10/2024 12:34 PM RESTAURANT AND BAR MANAGER POCT ARTERIAL BLOOD GAS Routine 10/10/2024 12:30 PM RESTAURANT AND BAR MANAGER I-STAT BLOOD GAS CG4 PLUS STAT 10/10/2024 12:15 PM RESTAURANT AND BAR MANAGER POCT ARTERIAL BLOOD GAS Routine 10/10/2024 10:57 AM RESTAURANT AND BAR MANAGER I-STAT BLOOD GAS CG4 PLUS STAT 10/10/2024 10:30 AM RESTAURANT AND BAR MANAGER POCT ARTERIAL BLOOD GAS Routine 10/10/2024 9:44 AM RESTAURANT AND BAR MANAGER I-STAT BLOOD GAS CG4 PLUS STAT 10/10/2024 9:30 AM RESTAURANT AND BAR MANAGER POCT ARTERIAL BLOOD GAS Routine 10/10/2024 8:41 AM RESTAURANT AND BAR MANAGER I-STAT BLOOD GAS CG4 PLUS STAT 10/10/2024 8:32 AM RESTAURANT AND BAR MANAGER CT CHEST W CON STAT 10/10/2024 7:27 AM RESTAURANT AND BAR MANAGER CT HEAD WO CON STAT 10/10/2024 7:27 AM RESTAURANT AND BAR MANAGER CULTURE, BACTERIA, BLOOD STAT 10/10/2024 6:15 AM RESTAURANT AND BAR MANAGER URINE BACTERIA CULTURE STAT 10/10/2024 6:00 AM RESTAURANT AND BAR MANAGER URINALYSIS AUTO DIP STAT 10/10/2024 6 :00 AM RESTAURANT AND BAR MANAGER CULTURE, BACTERIA, BLOOD STAT 10/10/2024 5:45 AM RESTAURANT AND BAR MANAGER LACTIC ACID STAT 10/10/2024 4:25 AM RESTAURANT AND BAR MANAGER XR CHEST PORTABLE STAT 10/10/2024 4:2 2 AM RESTAURANT AND BAR MANAGER ECG 12-LEAD Routine 10/10/2024 4:04 AM RESTAURANT AND BAR MANAGER CORONAVIRUS (COVID 19) STAT 10/10/2024 3:50 AM RESTAURANT AND BAR MANAGER INFLUENZA A & B STAT 10/10/2024 3:50 AM RESTAURANT AND BAR MANAGER TROPONIN, QUANT STAT 10/10/2024 3:45 AM RESTAURANT AND BAR MANAGER COMPREHENSIVE METABOLIC PANEL STAT 10/10/2024 3:45 AM RESTAURANT AND BAR MANAGER CBC W/DIFF AUTOMATED STAT 10/10/2024 3:45 AM RESTAURANT AND BAR MANAGER COLONOSCOPY Routine RESTAURANT AND BAR MANAGER from Last 3 Months or Most Recently Relevant to Health Maintenance Results * (ABNORMAL) POCT glucose (10/18/2024 11:35 AM RESTAURANT AND BAR MANAGER) Only the most recent of32 resultswithin the time period is included. Pathologist [facility] GLUCOSE POC 143(H) 70 - 109 10/18/2024 11:42 AM RESTAURANT AND BAR MANAGER [facility] 10/18/2024 11:3 5 AM RESTAURANT AND BAR MANAGER Livia Xiao MD POCT ORDERABLES - DEVICE Final Result [facility] [address] [place] [address], [id number] * (ABNORMAL) Blood gas, venous (10/18/2024 6:57 AM RESTAURANT AND BAR MANAGER) Only the most recent of5 resultswithin the time period is included. PH VENOUS 7.35 7.32 - 7.42 10/18/2024 7:19 AM RESTAURANT AND BAR MANAGER [facility] PCO2 VENOUS 77.3(HH) 41.0 - 51.0 MMHG 10/18/2024 7:19 AM RESTAURANT AND BAR MANAGER [facility] Comment: CRITICAL RESULT, SPECIMEN DATE, TIME WERE READ BACK BY RN [id number] ON 10/18/24 AT 0717.SB PO2 VENOUS 55.2(H) 25.0 - 40.0 MM HG 10/18/2024 7:19 AM [facility] BICARB VENOUS 41.3(H) 24 - 28 MMOL/L 10/18/2024 7:19 AM [facility] TOTAL CO2 VENOUS 43.7(H) 25.0 - 29.0 MMOL/L 10/18/2024 7:19 AM [facility] BASE EXCESS VENOUS 12.6(H) 0 - 2 MMOL/L 10/18/2024 7:19 AM [facility] O2 SAT VENOUS 86(H) <75 % 10/18/2024 7:19 AM [facility] 10/18/2024 6:57 AM RESTAURANT AND BAR MANAGER Livia Xiao MD LABORATORY Final Result [facility] [address] [place] [address], [id number] * (ABNORMAL) COMPREHENSIVE METABOLIC PANEL (10/18/2024 6:57 AM RESTAURANT AND BAR MANAGER) Only the most recent of9 resultswithin the time period is included. SODIUM S/P/B 137 136 - 145 MMOL/L 10/18/2024 7:37 AM [facility] POTASSIUM S/P/B 4.1 3.5 - 5.1 MMOL/L 10/18/2024 7:37 AM [facility] CHLORIDE S/P/B 96(L) 97 - 115 MMOL/L 10/18/2024 7:37 AM [facility] CO2 39.9(H) 21.0 - 32.0 MMOL/L 10/18/2024 7:37 AM [facility] GLUCOSE 109(H) 74 - 106 MG/DL 10/18/2024 7:37 AM [facility] BUN 8 7 - 18 MG/DL 10/18/2024 7:37 AM [facility] CREATININE S/P/B 0.45(L) 0.55 - 1.02 MG/DL 10/18/2024 7:37 AM [facility] CALCIUM S/P/B 9.5 8.5 - 10.1 MG/DL 10/18/2024 7:37 AM [facility] BILIRUBIN TOTAL S/P/B 1.2(H) 0.2 - 1.0 MG/DL 10/18/2024 7:37 AM [facility] ALKALINE PHOSPHATASE S/P/B 63 50 - 130 U/L 10/18/2024 7:37 AM [facility] AST 15 15 - 37 U/L 10/18/2024 7:37 AM [facility] ALT 20 13 - 56 U/L 10/18/2024 7:37 AM [facility] TOTAL PROTEIN S/P/B 6.1(L) 6.4 - 8.2 G/DL 10/18/2024 7:37 AM [facility] ALBUMIN S/P/B 3.1(L) 3.4 - 5.0 G/DL 10/18/2024 7:37 AM [facility] ANION GAP 1.1(L) 2.0 - 10.0 MMOL/L 10/18/2024 7:37 AM [facility] OSMOLALITY (CALC) 283 MOSM/KG 025 7:37 AM [facility] Comment:REFERENCE RANGE NOT ESTABLISHED GFR ESTIMATE >90 >90 ML/MIN/1. 73 M2 10/18/2024 7:37 AM [facility] GFR NOTES GFR REFERENCE S: 10/18/2024 7:37 AM [facility] Comment: THE ESTIMATED GFR IS CALCULATED USING THE 2020 CKD-EPI EQUATION. THE FOLLOWING CATEGORIES FOR GRADING RENAL FUNCTION ARE RECOMMENDED BY THE INTERNATIONAL SOCIETY OF NEPHROLOGY (KDIGO 2012 CLINICAL PRACTICE GUIDELINE). G1,NORMAL OR HIGH: >89 ml/min/1.73 m2 G2,MILDLY DECREASED: 60-89 ml/min/1.73 m2 G3A,MILDLY TO MODERATELY DECREASED: 45-59 ml/min/1.73 m2 G3B,MODERATELY TO SEVERELY DECREASED: 30-44 ml/min/1.73 m2 G4,SEVERELY DECREASED: 15-29 ml/min/1.73 m2 G5,KIDNEY FAILURE: <15 ml/min/1.73 m2 10/18/2024 6:57 AM RESTAURANT AND BAR MANAGER Livia Xiao MD LABORATORY Final Result [facility] [address] [place] [address], [id number] * (ABNORMAL) CBC W/DIFF AUTOMATED (10/18/2024 6:57 AM RESTAURANT AND BAR MANAGER) Only the most recent of9 resultswithin the time period is included. WBC 7.74 4.00 - 10.80 x10'3/uL 10/18/2024 7:13 AM RESTAURANT AND BAR MANAGER [facility] RBC 4.20 4.10 - 5.40 x10'6/uL 10/18/2024 7:13 AM [facility] HGB 12.4 12.0 - 16.0 G/DL 10/18/2024 7:13 AM RESTAURANT AND BAR MANAGER [facility] HCT 41.6 36.0 - 47.0 % 10/18/2024 7:13 AM RESTAURANT AND BAR MANAGER [facility] MCV 99.0 78.0 - 100.0 FL 10/18/2024 7:13 AM RESTAURANT AND BAR MANAGER [facility] MCH 29.5 27.0 - 31.0 PG 10/18/2024 7:13 AM [facility] MCHC 29.8(L) 33.0 - 36.0 G/DL 10/18/2024 7:13 AM [facility] RDW 14.7(H) 11.5 - 14.5 % 10/18/2024 7:13 AM [facility] PLT SEE NOTE 150 - 350 x10'3/uL 10/18/2024 7:59 AM [facility] Comment: Platelet clumps present. Estimate from slide appears to be within normal range. Reorder Platelet Count if actual value is clinically significant. DIFFERENTIAL TYPE AUTOMATED DIFFERENTIAL 10/18/2024 8:00 AM [facility] SEG NEUTROPHILS 71.8 % 8:00 AM [facility] LYMPHOCYTES 20.7 % 10/18/2024 8:00 AM [facility] MONOCYTES 5.8 % 10/18/2024 8:00 AM [facility] EOSINOPHILS 0.1 % 10/18/2024 8:00 AM [facility] BASOPHILS 0.4 % 10/18/2024 8:00 AM [facility] IMMATURE GRANS % 1.2 % 10/18/19 8:00 AM [facility] ABS. NEUTROPHILS 5.56 1.60 - 8.30 x10'3/uL 10/18/2024 8:00 AM [facility] ABS. LYMPHOCYTES 1.60 0.80 - 4.70 x10'3/uL 10/18/2024 8:00 AM [facility] ABS. MONOCYTES 0.45 0.00 - 1.50 x10'3/uL 10/18/2024 8:00 AM [facility] ABS. EOSINOPHILS 0.01 0.00 - 0.40 x10'3/uL 10/18/2024 8:00 AM [facility] ABS. BASOPHILS 0.03 0.00 - 0.20 x10'3/uL 10/18/2024 8:00 AM [facility] ABS. IMMATURE GRANULOCYTES 0.09(H) 0.00 - 0.03 x10'3/uL 10/18/2024 8:00 AM [facility] ABS. NUCLEATED RBC'S 0.00 0.00 - 0.01 x10'3/uL 10/18/2024 8:00 AM [facility] NRBC % 0.0 % 10/18/2024 8:00 AM [facility] 10/18/2024 6:57 AM [employer] Livia Xiao MD LABORATORY Final Result Performing Organization Address City/[facility] Co de Phone Number [facility] [address] [place] [address], [place] [phone] * PHOSPHORUS, INORGANIC PHOSPHATE (10/18/2024 6:57 AM [employer]) Only the most recent of8 resultswithin the time period is included. PHOSPHORUS 3.9 2.5 - 4.9 MG/DL 10/18/2024 7:37 AM [employer] [facility] 10/18/2024 6:57 AM [employer] Amber Horne MD LABORATORY Fi nal Result Performing Organization Address [facility] de Phone Number [facility] [address] [place] [address], [place] [phone] * MAGNESIUM (10/18/2024 6:57 AM [employer]) Only the most recent of8 resultswithin the time period is included. MAGNESIUM 2.2 1.6 - 2.6 MG/DL 10/18/2024 7:37 AM [employer] [facility] 10/18/2024 6:57 AM [employer] us Amber Horne MD LABORATORY Fi nal Result Performing Organization Address City/[facility] Co de Phone Number [facility] [address] [place] [address], [place] [phone] * (ABNORMAL) ARTERIAL BLOOD GAS (10/16/2024 11:30 AM [employer]) Only the most recent of2 resultswithin the time period is included. PH ARTERIAL 7.41 7.35 - 7.45 10/16/2024 11:38 AM [employer] [facility] PCO2 65.1(H) 35.0 - 45.0 MMHG 10/16/2024 11:38 AM [facility] PO2 54.4(L) 83.0 - 108.0 MMHG 10/16/2024 11:38 AM [facility] BICARB ARTERIAL 40.2(H) 22 - 26 MMOL/L 10/16/2024 11:38 AM [facility] TOTAL CO2 CAPILLARY 42.2(H) 23 - 27 MMOL/L 10/16/2024 11:38 AM [facility] BE/BASE EXCESS 12.8(H) 0 - 2 MMOL/L 10/16/2024 11:38 AM [facility] O2 Saturation 88(L) 95 - 98 % 10/16/2024 11:38 AM [facility] CARLOS A TEST POSITIVE 10/16/2024 11:30 AM [facility] OXYGEN STATUS 2 lr nc 10/16/2024 11:30 AM [facility] DRAW SITE ARTERIAL LT RADIAL 10/16/2024 11:30 AM [facility] 10/16/2024 11:3 0 AM RESTAURANT AND BAR MANAGER us Eren Garcia DO LABORATORY Final Result [facility] [address] [place] [address], [place] [phone] * Bedside spirometry (10/16/2024 10:23 AM RESTAURANT AND BAR MANAGER) 10/16/2024 10:2 3 AM RESTAURANT AND BAR MANAGER us Larry Markham MD PFT ORDERABLES Final Result [facility] * (ABNORMAL) POCT ACUTE VENOUS PANEL (10/13/2024 8:13 AM RESTAURANT AND BAR MANAGER) Only the most recent of11 resultswithin the time period is included. SODIUM WHOLE BLOOD 138 138 - 146 mmol/L 10/13/2024 8:20 AM [facility] POTASSIUM WHOLE BLOOD 4.7 3.5 - 4.9 mmol/L 10/13/2024 8:20 AM [facility] CA IONIZED WH BLOOD 1.26 1.12 - 1.32 mmol/L 10/13/2024 8:20 AM [facility] POC PH VENOUS 7.336 7.31 - 7.41 10/13/2024 8:20 AM [facility] POC PCO2 VENOUS 92.9(H) 41.0 - 51.0 MMHG 10/13/2024 8:20 AM [facility] POC PO2 VENOUS 65(H) 25 - 40 MMHG 10/13/2024 8:20 AM [facility] POC HCO3 VENOUS 49.6(H) 23 - 28 MMOL/L 10/13/2024 8:20 AM [facility] POC TCO2 VENOUS >50(H) 24 - 29 MMOL/L 10/13/2024 8:20 AM [facility] POC BASE EXCESS VENOUS 24(H) 0 - 3 MMOL/L 10/13/2024 8:20 AM [facility] POC HEMATOCRIT 40 38 - 51 % 10/13/2024 8:20 AM [facility] TIME TEST WAS PERFORMED: 813 10/13/2024 8:20 AM [facility] 10/13/2024 8:13 AM RESTAURANT AND BAR MANAGER us Amber Horne MD POCT ORDERABLES - DEVICE Final Result [facility] [address] [place] [address], [place] [phone] [id number] * CULTURE RESPIRATORY W/ GRAM STAIN (10/12/2024 11:21 AM RESTAURANT AND BAR MANAGER) SPEC DESCRIPTION SPUTUM, INDUCED 10/12/2024 11:21 AM RESTAURANT AND BAR MANAGER [facility] SPECIAL REQUESTS NO SPECIAL REQUEST 10/12/2024 11:21 AM RESTAURANT AND BAR MANAGER [facility] GRAM STAIN RESULT >25 NEUTROPHILS PER LPF 10/12/2024 2:25 PM RESTAURANT AND BAR MANAGER [facility] GRAM STAIN RESULT <10 EPITHELIAL CELLS PER LPF 10/12/2024 2:25 PM RESTAURANT AND BAR MANAGER [facility] GRAM STAIN RESULT RARE GRAM POSITIVE COCCI IN PAIRS 10/12/2024 2:25 PM RESTAURANT AND BAR MANAGER [facility] GRAM STAIN RESULT RARE GRAM NEGATIVE DIPLOCOCCI 10/12/2024 2:25 PM RESTAURANT AND BAR MANAGER [facility] CULTURE RESULT MANY MICROCOCCUS SPECIES 10/14/2024 9:51 AM RESTAURANT AND BAR MANAGER [facility] CULTURE RESULT MANY STREPTOCOCCI, ALPHA HEMOLYTIC 10/14/2024 9:51 AM RESTAURANT AND BAR MANAGER [facility] SPUTUM SPECIMEN OBTAINED BY SPUTUM INDUCTION / Unknown 10/12/2024 11:21 AM RESTAURANT AND BAR MANAGER 10/12/2024 11:36 AM RESTAURANT AND BAR MANAGER Amber Horne MD MICROBIOLOGY - GEN ERAL ORDERABLES Final Result [facility] [address] [place] [address], [place] [phone] * (ABNORMAL) URINALYSIS (10/11/2024 6:00 PM RESTAURANT AND BAR MANAGER) COLOR (U) YELLOW 10/11/2024 6:09 PM RESTAURANT AND BAR MANAGER [facility] TRANSPARENCY CLEAR 10/11/2024 6:09 PM [facility] SPECIFIC GRAVITY (U) 1.030 1.002 - 1.035 10/11/2024 6:09 PM [facility] U PH 6.0 5 - 8 10/11/2024 6:09 PM [facility] PROTEIN RANDOM (U) 30(A) NEGATIVE 10/11/2024 6:09 PM [facility] GLUCOSE (U) NEGATIVE NEGATIVE MG/DL 10/11/2024 6:09 PM [facility] KETONES MG/DL (U) 40(A) NEGATIVE 10/11/2024 6:09 PM [facility] BILIRUBIN (U) NEGATIVE NEGATIVE 10/11/2024 6:09 PM [facility] BLOOD (U) NEGATIVE NEGATIVE 10/11/2024 6:09 PM [facility] NITRITES NEGATIVE NEGATIVE 10/11/2024 6:09 PM [facility] UROBILINOGEN 4.0(H) 0 - 1 EU/DL 10/11/2024 6:09 PM [facility] LEUKOCYTES (U) NEGATIVE NEGATIVE 10/11/2024 6:09 PM [facility] RBC/HPF 4(H) 0 - 3 /HPF 10/11/2024 6:09 PM [facility] WBC/HPF 3 0 - 6 /HPF 10/11/2024 6:09 PM [facility] BACTERIA (U) NONE /HPF 10/11/2024 6:09 PM [facility] SQUAMOUS EPITHELIALS 6 10/11/2024 6:09 PM [facility] URINE SPECIMEN OBTAINED BY CLEAN CATCH PROCEDURE / Unknown 10/11/2024 6:00 PM RESTAURANT AND BAR MANAGER us Amber Horne MD URINE ORDERABLES F inal Result [facility] [address] [place] [address], [place] [phone] * USE ECHOCARDIOGRAM (10/11/2024 10:19 AM RESTAURANT AND BAR MANAGER) Anatomical Region Laterality Modality Cardiac Echocardiogram 10/11/2024 8:34 AM RESTAURANT AND BAR MANAGER Narrative 10/11/2024 10:34 AM RESTAURANT AND BAR MANAGER Echocardiography Report Pat.Name: SANDIE TATE Pat.ID: [id number] .Date: 10/11/2024 Refer.MD: [id number] KARISSA Mcdonnell EWDPROV EWDPROV Exam Time: 8:34:00 AM Study Type:ECHO WITH CARDIAC DOPPLER COMP Height: 60 in Weight: 130 lb BSA: 1.55 m2 Age: 2 1960,63Y Sex: F HR: 75 bpm Sonogrphr: Magalie Mcdonald Pat. Stat.:Inpatient Room: [place] [address] CPT - 4: 61070 Reason for Study:hypoxia Procedures: 2D, M-mode, Doppler, Color Flow ++++++++++++++++++++++++++++++++++++ SUMMARY: ++++++++++++++++++++++++++++++++++++ The left ventricular size is normal. Estimated left ventricular ejection fraction is 65-70%. The right ventricular size is moderately dilated. Right ventricular systolic function is normal. Unable to get PASP due to inadequate TR envelope. No prior echo for a direct comparison. ++++++++++++++++++++++++++++++++++++ FINDINGS: ++++++++++++++++++++++++++++++++++++ LV: The left ventricular size is normal. Estimated left ventricular ejection fraction is 65-70%. Left ventricular diastolic function is abnormal (grade 1 - impaired relaxation). WM: Wall motion appears normal in all segments. RV: The right ventricular size is moderately dilated. Right ventricular systolic function is normal. IVS: Intraventricular septum is normal. LA: The left atrial volume is normal ( less than 34 ml/M2). RA: Right atrial size is normal. IAS: Atrial septum appears intact. AAMIR: No evidence of pericardial effusion. AO: The proximal ascending aorta measures 3.7cm. SVn: Inferior vena cava is normal. Inferior vena cava shows >50% collapse with respiration consistent with normal right atrial pressure. AV: Structurally normal aortic valve. No evidence of aortic valve stenosis. No evidence of aortic valve regurgitation. MV: Structurally normal mitral valve. No evidence of significant mitral regurgitation. No evidence of mitral stenosis. PV: Structurally normal pulmonic valve. No evidence of pulmonic regurgitation. TV: Structurally normal tricuspid valve. A trace of tricuspid regurgitation. ++++++++++++++++++++++++++++++++++++ MEASUREMENTS: ++++++++++++++++++++++++++++++++++++ DOPPLER LVOT LVOTpkPG 5 mmHg LVOTmnPG 2 mmHg LVOTpkVel 116 cm/s (70-110)* LVOT SV 81 ml LVOT TVI 24.1 cm AV Forward Flow AV TVI 33.5 cm AV pkPG 12 mmHg AV pkVel 173 cm/s (100-170)+* Area (TVI) 2.42 cm2 (3-5)* AV mnVel 105 cm/s Area (Elmo) 2.26 cm2 (3-5)* AV mnPG 5 mmHg MV Forward Flow MV DeTm 174 msec MV E/A 1.1 MV mnPG 1 mmHg MV pkE 82.7 cm/s (60-130) MV pkPG 3 mmHg MV pkA 72.8 cm/s PV Forward Flow PV pkVel 121 cm/s (60-90)* PV pkPG 6 mmHg Lat E' Lat e 9.14 cm/s Lat E/E' Lat E/e 9 Med E' Med e 7.83 cm/s Med E/E' Med E/e 10.6 Aortic Valve Aortic Valve Ar 1.56 Aortic Valve Ve 0.67 AV DI Value 0.7 MANDA (VTI) Index Value 1.56 LV Mass 2D Value 128 g LV Mass Ntzty1G Value 82.6 g/m2 RA Volume Atrial Tovar 4.82 cm Atrial Tovar 11.5 cm2 Atrial Tovar 22.9 ml 2D Left Ventricle LVIDd 3.77 cm (3.6-5.2) LV EF(Bi-Plane) 70.3 % (55-75) LVIDs 2.43 cm (2.3-3.9) LVPW LVPWd 1.11 cm Ventricular Septum IVSd 1.03 cm Left Atrium LA a-p 3.4 cm (2.8-3.4) Aorta Ao Rtd 3.88 cm (zsc 4.8)* Ao Asc 3.71 cm (zsc 5.9)* LVOT LVOT 2.07 cm Ratios IVS Inferior vena cava IVC Diam 2.33 cm LA Biplane LAVol I BP 25.9 ml/m2 Right Ventricle Right Ventricle 4.04 cm Major [place] 8.08 cm Right Ventricul 21.8 cm2 Right Ventricle 3.63 cm Right Ventricul 13.4 cm2 Right Ventricul 38.5 % MMODE TA Tricuspid Annul 3.45 cm <Electronic Signature> 10/11/2024 10:34 AM Mat Vergara M.D. Procedure Note Mat Vergara MD - 10/11/2024 Echocardiography Report Pat.Name: SANDIE TATE Danielle.ID: [id number] .Date: 10/11/2024 Refer.: [id number] KARISSA Mcdonnell EWDPROV EWDPROV Exam Time: 8:34:00 AM Study Type:ECHO WITH CARDIAC DOPPLER COMP Height: 60 in Weight: 130 lb BSA: 1.55 m2 Age: 2 1960,63Y Sex: F HR: 75 bpm Sonogrphr: Magalie Mcdonald Pat. Stat.:Inpatient Room: [place] [address] CPT - 4: 58586 Reason for Study:hypoxia Procedures: 2D, M-mode, Doppler, Color Flow ++++++++++++++++++++++++++++++++++++ SUMMARY: ++++++++++++++++++++++++++++++++++++ The left ventricular size is normal. Estimated left ventricular ejection fraction is 65-70%. The right ventricular size is moderately dilated. Right ventricular systolic function is normal. Unable to get PASP due to inadequate TR envelope. No prior echo for a direct comparison. ++++++++++++++++++++++++++++++++++++ FINDINGS: ++++++++++++++++++++++++++++++++++++ LV: The left ventricular size is normal. Estimated left ventricular ejection fraction is 65-70%. Left ventricular diastolic function is abnormal (grade 1 - impaired relaxation). WM: Wall motion appears normal in all segments. RV: The right ventricular size is moderately dilated. Right ventricular systolic function is normal. IVS: Intraventricular septum is normal. LA: The left atrial volume is normal ( less than 34 ml/M2). RA: Right atrial size is normal. IAS: Atrial septum appears intact. AAMIR: No evidence of pericardial effusion. AO: The proximal ascending aorta measures 3.7cm. SVn: Inferior vena cava is normal. Inferior vena cava shows >50% collapse with respiration consistent with normal right atrial pressure. AV: Structurally normal aortic valve. No evidence of aortic valve stenosis. No evidence of aortic valve regurgitation. MV: Structurally normal mitral valve. No evidence of significant mitral regurgitation. No evidence of mitral stenosis. PV: Structurally normal pulmonic valve. No evidence of pulmonic regurgitation. TV: Structurally normal tricuspid valve. A trace of tricuspid regurgitation. ++++++++++++++++++++++++++++++++++++ MEASUREMENTS: ++++++++++++++++++++++++++++++++++++ DOPPLER LVOT LVOTpkPG 5 mmHg LVOTmnPG 2 mmHg LVOTpkVel 116 cm/s (70-110)* LVOT SV 81 ml LVOT TVI 24.1 cm AV Forward Flow AV TVI 33.5 cm AV pkPG 12 mmHg AV pkVel 173 cm/s (100-170)+* Area (TVI) 2.42 cm2 (3-5)* AV mnVel 105 cm/s Area (Elmo) 2.26 cm2 (3-5)* AV mnPG 5 mmHg MV Forward Flow MV DeTm 174 msec MV E/A 1.1 MV mnPG 1 mmHg MV pkE 82.7 cm/s (60-130) MV pkPG 3 mmHg MV pkA 72.8 cm/s PV Forward Flow PV pkVel 121 cm/s (60-90)* PV pkPG 6 mmHg Lat E' Lat e 9.14 cm/s Lat E/E' Lat E/e 9 Med E' Med e 7.83 cm/s Med E/E' Med E/e 10.6 Aortic Valve Aortic Valve Ar 1.56 Aortic Valve Ve 0.67 AV DI Value 0.7 MANDA (VTI) Index Value 1.56 LV Mass 2D Value 128 g LV Mass Xaoyn7A Value 82.6 g/m2 RA Volume Atrial Tovar 4.82 cm Atrial Tovar 11.5 cm2 Atrial Tovar 22.9 ml 2D Left Ventricle LVIDd 3.77 cm (3.6-5.2) LV EF(Bi-Plane) 70.3 % (55-75) LVIDs 2.43 cm (2.3-3.9) LVPW LVPWd 1.11 cm Ventricular Septum IVSd 1.03 cm Left Atrium LA a-p 3.4 cm (2.8-3.4) Aorta Ao Rtd 3.88 cm (zsc 4.8)* Ao Asc 3.71 cm (zsc 5.9)* LVOT LVOT 2.07 cm Ratios IVS Inferior vena cava IVC Diam 2.33 cm LA Biplane LAVol I BP 25.9 ml/m2 Right Ventricle Right Ventricle 4.04 cm Major [place] 8.08 cm Right Ventricul 21.8 cm2 Right Ventricle 3.63 cm Right Ventricul 13.4 cm2 Right Ventricul 38.5 % MMODE TA Tricuspid Annul 3.45 cm <Electronic Signature> 10/11/2024 10:34 AM Mat Vergara M.D. us Amber Horne MD ECHO Fi nal Result * MRSA SCREENING (10/11/2024 8:19 AM RESTAURANT AND BAR MANAGER) SPECIMEN SOURCE RESPIRATORY, NOSE 10/11/2024 8:11 AM RESTAURANT AND BAR MANAGER [facility] MRSA BY PCR NASAL METHICILLIN RESISTANT STAPH AUREUS NOT DETECTED METHICILLIN RESISTANT STAPH AUREUS NOT DETECTED 10/11/2024 1:24 PM RESTAURANT AND BAR MANAGER [facility] NASAL STRUCTURE / Unknown 10/11/2024 8:19 AM RESTAURANT AND BAR MANAGER Amber Horne MD MICROBIOLOGY - GEN ERAL ORDERABLES Final Result [facility] [address] [place] [address], [place] [phone] * ECG 12 lead (10/11/2024 5:56 AM RESTAURANT AND BAR MANAGER) Only the most recent of2 resultswithin the time period is included. 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: : 1960 Requested By: AMBER HORNE Order Number: [id number] Reading MD: Williams Shine Measurements Intervals [place] Rate: 73 P: 77 AK: 126 QRS: 39 QRSD: 93 T: 70 QT: 384 QTc: 425 Interpretive Statements SINUS RHYTHM AURANT AND BAR MANAGER Procedure Note Williams Shine MD - 10/11/2024 [facility] [address] [place] [address] Test Date: 2024-10-11 Pat Name: SANDIE TATE Department: 1 Room: [place] [address] Gender: Female Leather Craftsman: : 1960 Requested By: MAIKEL Order Number: [id number] Reading MD: Williams Shine Measurements Intervals [place] Rate: 73 P: 77 AK: 126 QRS: 39 QRSD: 93 T: 70 QT: 384 QTc: 425 Interpretive Statements SINUS RHYTHM AURANT AND BAR MANAGER Amber Horne MD ECG ORDERABLES Fi nal Result Performing Organization Address [facility] Co de Phone Number [facility] * (ABNORMAL) HEMOGLOBIN, GLYCOSYLATED (10/11/2024 2:20 AM RESTAURANT AND BAR MANAGER) HGB A1C 6.1(H) <5.7 % 10/11/2024 4:07 AM RESTAURANT AND BAR MANAGER [facility] ESTIMATED AVG GLUCOSE 128(H) 74 - 114 MG/DL 10/11/2024 4:07 AM RESTAURANT AND BAR MANAGER [facility] 10/11/2024 2:20 AM RESTAURANT AND BAR MANAGER Vane Licea MD LABORATORY F inal Result Performing Organization Address [facility] de Phone Number [facility] [address] [place] [address], [id number] * LACTIC ACID - SINGLE (10/11/2024 2:20 AM RESTAURANT AND BAR MANAGER) Only the most recent of2 resultswithin the time period is included. LACTIC ACID VENOUS 0.7 0.4 - 2.0 MMOL/L 10/11/2024 3:27 AM RESTAURANT AND BAR MANAGER [facility] 10/11/2024 2:20 AM RESTAURANT AND BAR MANAGER Amber Horne MD LABORATORY Fi nal Result Performing Organization Address [facility] de Phone Number [facility] [address] [place] [address], [id number] * TROPONIN, QUANT (10/11/2024 2:20 AM RESTAURANT AND BAR MANAGER) Only the most recent of2 resultswithin the time period is included. TROPONIN I HIGH SENSITIVITY 7 0 - 53 ng/L 10/11/2024 3:53 AM RESTAURANT AND BAR MANAGER [facility] 10/11/2024 2:20 AM RESTAURANT AND BAR MANAGER us Amber Horne MD LABORATORY Fi nal Result Performing Organization Address [facility] Co de Phone Number [facility] [address] [place] [address], [place] [phone] * THYROID STIM HORMONE, TSH (10/11/2024 2:20 AM RESTAURANT AND BAR MANAGER) Pathologist [facility] TSH 0.573 0.358 - 3.740 uIU/ML 10/11/2024 3:53 AM RESTAURANT AND BAR MANAGER [facility] Comment: ASSAY PERFORMED BY CHEMILUMINESCENCE METHODOLOGY USING [employer] [facility]. PATIENT RESULTS DETERMINED BY ASSAYS USING DIFFERENT MANUFACTURERS FOR METHODS MAY NOT BE COMPARABLE. 10/11/2024 2:20 AM RESTAURANT AND BAR MANAGER us Amber Horne MD LABORATORY Fi nal Result Performing Organization Address [facility] de Phone Number [facility] [address] [place] [address], [place] [phone] * CALCIUM, IONIZED (10/11/2024 2:20 AM RESTAURANT AND BAR MANAGER) Pathologist [facility] CALCIUM IONIZED 1.20 1.15 - 1.33 MMOL/L 10/11/2024 2:47 AM RESTAURANT AND BAR MANAGER [facility] 10/11/2024 2:20 AM RESTAURANT AND BAR MANAGER us Amber Horne MD LABORATORY Fi nal Result Performing Organization Address [facility] Co de Phone Number [facility] [address] [place] [address], [id number] * (ABNORMAL) ISTAT Blood Gas CG4 PLUS (10/10/2024 2:37 PM RESTAURANT AND BAR MANAGER) Only the most recent of5 resultswithin the time period is included. [facility] POC PH WHOLE BLOOD 7.31(L) 7.35 - 7.45 10/10/2024 2:43 PM RESTAURANT AND BAR MANAGER [facility] POC PCO2 WHOLE BLOOD 87.8(HH) 35 - 45 MMHG 10/10/2024 2:43 PM RESTAURANT AND BAR MANAGER [facility] POC PO2 WHOLE BLOOD 58(L) 80 - 100 MMHG 10/10/2024 2:43 PM RESTAURANT AND BAR MANAGER [facility] POC CO2 TOTAL WHOLE BLOOD 47(H) 21 - 32 MMOL/L 10/10/2024 2:43 PM RESTAURANT AND BAR MANAGER [facility] POC BICARB WHOLE BLOOD 44.4(H) 22 - 26 MMOL/L 10/10/2024 2:43 PM RESTAURANT AND BAR MANAGER [facility] POC BASE EXCESS WHOLE BLOOD 18(H) 0 - 3 MMOL/L 10/10/2024 2:43 PM RESTAURANT AND BAR MANAGER [facility] POC O2 SATURATION WHOLE BLOOD 85(L) 95 - 100 % 10/10/2024 2:43 PM RESTAURANT AND BAR MANAGER [facility] O2 ADMIN ARTERIAL 35 10/10/2024 2:45 PM RESTAURANT AND BAR MANAGER [facility] CARLOS A TEST POSITIVE 10/10/2024 2:45 PM RESTAURANT AND BAR MANAGER [facility] 10/10/2024 2:37 PM RESTAURANT AND BAR MANAGER us Sacha Ji MD POINT OF CARE TEST ORDERABLES Fi nal Result [address] [place] [address], * I-STAT BLOOD GAS CG4 PLUS ([facility]) (10/10/2024 2:20 PM RESTAURANT AND BAR MANAGER) Only the most recent of5 resultswithin the time period is included. COMMENT TEST PERFORMED ON ISTAT 10/10/2024 2:18 PM RESTAURANT AND BAR MANAGER [facility] 10/10/2024 2:20 PM RESTAURANT AND BAR MANAGER Sacha Ji MD LABORATORY Final Result [facility] [address] [facility] [place] [address], * Critical Care (10/10/2024 12:34 PM RESTAURANT AND BAR MANAGER) Sacha Cam MD - 10/10/2024 12:34 PM RESTAURANT AND BAR MANAGER Sacha Ji MD 10/10/2024 1:13 PM Critical Care Performed by: Sacha Ji MD Authorized by: Sacha Ji MD Critical care provider statement: Critical care time (minutes): 35 Critical care time was exclusive of: Separately billable procedures and treating other patients and teaching time Critical care was necessary to treat or prevent imminent or life-threatening deterioration of the following conditions: Respiratory failure Critical care was time spent personally by me on the following activities: Development of treatment plan with patient or surrogate, discussions with consultants, evaluation of patient's response to treatment, examination of patient, obtaining history from patient or surrogate, ordering and performing treatments and interventions, ordering and review of laboratory studies, ordering and review of radiographic studies, pulse oximetry, re-evaluation of patient's condition and review of old charts I assumed direction of critical care for this patient from another provider in my specialty: yes Care discussed with: accepting provider at another facility Sacha Ji MD PROCEDURE/MINOR SURGICAL ORDERAB LES Final Result * CT CHEST W CON (10/10/2024 7:27 AM RESTAURANT AND BAR MANAGER) Anatomical Region Laterality Modality Chest Computed Tomogra phy 10/10/2024 7:34 AM RESTAURANT AND BAR MANAGER Impressions 10/10/2024 7:44 AM RESTAURANT AND BAR MANAGER IMPRESSION: 1. Moderate peribronchial wall thickening may be due to bronchitis versus reactive airway disease. 2. CHF versus interstitial inflammatory process as detailed above. No patchy infiltrate. 3. Possible pulmonary arterial hypertension. Moderately severe coronary artery calcifications. Referred By: Interpreted By: Moris Mccabe MD, 10/10/2024 7:34 AM Narrative 10/10/2024 7:44 AM RESTAURANT AND BAR MANAGER [address] [place] [address] EXAMINATION: CT CHEST WITH CONTRAST EXAM DATE/TIME: 10/10/2024 7:27 AM REASON FOR EXAM: sepsis Shortness of breath. COPD. Elevated white blood cell count COMPARISON: Same day earlier chest x-ray TECHNIQUE: Computed tomography was performed of the chest after the injection of 95 cc of Isovue-370. A dose lowering technique was used for this procedure, which may include, but is not limited to, dose reduction technique, automated exposure control, iterative reconstruction, ALARA (As Low As Reasonably Achievable), or Image Gently techniques. FINDINGS: This exam is slightly limited due to patient motion. On lung windows, no suspicious pulmonary lesion, pneumothorax, or pleural effusion.. There is moderate peribronchial wall thickening may be due to bronchitis versus reactive airway disease. There is also mild to moderate scattered interstitial prominence. May be due to CHF versus interstitial inflammatory process.. No patchy infiltrate. On soft tissue windows, no axillary or supraclavicular lymphadenopathy. On mediastinal windows, no evidence of hilar or mediastinal lymphadenopathy. Heart size normal. No pericardial effusion. Nonpathologic sized mediastinal lymph nodes. Calcified mediastinal and right hilar lymph nodes.. Enlarged pulmonary outflow tract at 3.5 cm. Prominent bilateral proximal pulmonary arteries. May be due to pulmonary arterial hypertension.. Moderately severe coronary artery calcifications Limited evaluation of the upper abdomen demonstrates no acute abnormality. On bone windows, no suspicious skeletal lesion or acute compression fracture deformity. Procedure Note Moris Mccabe MD - 10/10/[address] [place] [address] EXAMINATION: CT CHEST WITH CONTRAST EXAM DATE/TIME: 10/10/2024 7:27 AM REASON FOR EXAM: sepsis Shortness of breath. COPD. Elevated white blood cell count COMPARISON: Same day earlier chest x-ray TECHNIQUE: Computed tomography was performed of the chest after theinjection of 95 cc of Isovue-370. A dose lowering technique was used for this procedure, which may include,but is not limited to, dose reduction technique, automated exposurecontrol, iterative reconstruction, ALARA (As Low As ReasonablyAchievable), or Image Gently techniques. FINDINGS: This exam is slightly limited due to patient motion. On lung windows, no suspicious pulmonary lesion, pneumothorax, or pleuraleffusion.. There is moderate peribronchial wall thickening may be due to bronchitisversus reactive airway disease. There is also mild to moderate scattered interstitial prominence. May bedue to CHF versus interstitial inflammatory process.. No patchyinfiltrate. On soft tissue windows, no axillary or supraclavicular lymphadenopathy. On mediastinal windows, no evidence of hilar or mediastinallymphadenopathy. Heart size normal. No pericardial effusion.Nonpathologic sized mediastinal lymph nodes. Calcified mediastinal andright hilar lymph nodes.. Enlarged pulmonary outflow tract at 3.5 cm. Prominent bilateral proximalpulmonary arteries. May be due to pulmonary arterial hypertension.. Moderately severe coronary artery calcifications Limited evaluation of the upper abdomen demonstrates no acuteabnormality. On bone windows, no suspicious skeletal lesion or acute compressionfracture deformity. IMPRESSION: 1. Moderate peribronchial wall thickening may be due to bronchitis versusreactive airway disease. 2. CHF versus interstitial inflammatory process as detailed above. Nopatchy infiltrate. 3. Possible pulmonary arterial hypertension. Moderately severe coronaryartery calcifications. Referred By: Interpreted By: Moris Mccabe MD, 10/10/2024 7:34 AM Sacha Ji MD CT Final Result * CT HEAD WO CON (10/10/2024 7:27 AM RESTAURANT AND BAR MANAGER) Anatomical Region Laterality Modality Head Computed Tomogra phy 10/10/2024 7:30 AM RESTAURANT AND BAR MANAGER Impressions 10/10/2024 7:33 AM RESTAURANT AND BAR MANAGER IMPRESSION:===== No evidence of acute intracranial hemorrhage, mass effect, or midline shift. CT is insensitive for the detection of acute ischemia. Referred By: Interpreted By: Moris Mccabe MD, 10/10/2024 7:30 AM Narrative 10/10/2024 7:33 AM RESTAURANT AND BAR MANAGER [address] [place] [address] EXAMINATION: CT OF THE HEAD WITHOUT CONTRAST EXAM DATE/TIME: 10/10/2024 7:27 AM REASON FOR EXAM: altered mental status COMPARISON: 10/10/2024 TECHNIQUE: Noncontrast CT examination of the head was performed with axial images obtained. A dose lowering technique was used for this procedure, which may include, but is not limited to, dose reduction technique, automated exposure control, iterative reconstruction, ALARA (As Low As Reasonably Achievable), or Image Gently techniques. FINDINGS: Exam is limited due to patient motion. No evidence of scalp hematoma or significant soft tissue swelling. Limited evaluation of the paranasal sinuses and mastoids is unremarkable. Intracranially, no evidence of hemorrhage, mass effect, or midline shift. CSF spaces are within normal limits. Mild intracranial vascular calcifications. Posterior cranial fossa are unremarkable. ===== Procedure Note Moris Mccabe MD - 10/10/[address] [place] [address] EXAMINATION: CT OF THE HEAD WITHOUT CONTRAST EXAM DATE/TIME: 10/10/2024 7:27 AM REASON FOR EXAM: altered mental status COMPARISON: 10/10/2024 TECHNIQUE: Noncontrast CT examination of the head was performed with axialimages obtained. A dose lowering technique was used for this procedure,which may include, but is not limited to, dose reduction technique,automated exposure control, iterative reconstruction, ALARA (As Low AsReasonably Achievable), or Image Gently techniques. FINDINGS: Exam is limited due to patient motion. No evidence of scalp hematoma or significant soft tissue swelling. Limited evaluation of the paranasal sinuses and mastoids isunremarkable. Intracranially, no evidence of hemorrhage, mass effect, or midlineshift. CSF spaces are within normal limits. Mild intracranial vascularcalcifications. Posterior cranial fossa are unremarkable. ===== IMPRESSION:===== No evidence of acute intracranial hemorrhage, mass effect, or midlineshift. CT is insensitive for the detection of acute ischemia. Referred By: Interpreted By: Moris Mccabe MD, 10/10/2024 7:30 AM Sacha Ji MD CT Final Result * CULTURE, BACTERIA, BLOOD (10/10/2024 6:15 AM RESTAURANT AND BAR MANAGER) Only the most recent of2 resultswithin the time period is included. SPEC DESCRIPTION BLOOD 10/10/2024 5:55 AM RESTAURANT AND BAR MANAGER [facility] SPECIAL REQUESTS NO SPECIAL REQUEST 10/10/2024 5:55 AM RESTAURANT AND BAR MANAGER [facility] CULTURE RESULT NO GROWTH 5 DAYS 10/15/2024 8:56 AM RESTAURANT AND BAR MANAGER [facility] BLOOD SPECIMEN OBTAINED FOR BLOOD CULTURE / Unknown 10/10/2024 6:15 AM RESTAURANT AND BAR MANAGER 10/10/2024 6:32 AM RESTAURANT AND BAR MANAGER Yehuda Eaton DO MICROBIOLOGY - GENERAL ORDERAB LES Final Result [facility] [address] [place] [address], [facility] [address] [place] [address] [place] [address], * CULTURE URINE (10/10/2024 6:00 AM RESTAURANT AND BAR MANAGER) SPEC DESCRIPTION URINE STRAIGHT CATH 10/10/2024 10:41 AM RESTAURANT AND BAR MANAGER [facility] SPECIAL REQUESTS NO SPECIAL REQUEST 10/10/2024 10:41 AM RESTAURANT AND BAR MANAGER [facility] CULTURE RESULT NO GROWTH 2 DAYS 10/13/2024 6:45 AM RESTAURANT AND BAR MANAGER [facility] URINE SPECIMEN OBTAINED BY SINGLE CATHETERIZATION OF URINARY BLADDER / Unknown 10/10/2024 6:00 AM RESTAURANT AND BAR MANAGER 10/10/2024 10:57 AM RESTAURANT AND BAR MANAGER us Sacha Ji MD MICROBIOLOGY - GENERAL ORDERABLE S Final Result [facility] [address] [place] [address], [facility] [address] [place] [address], [place] * (ABNORMAL) URINALYSIS AUTO DIP (10/10/2024 6:00 AM RESTAURANT AND BAR MANAGER) COLOR (U) YELLOW YELLOW 10/10/2024 6:44 AM RESTAURANT AND BAR MANAGER [facility] TRANSPARENCY Clear CLEAR 10/10/2024 6:44 AM RESTAURANT AND BAR MANAGER [facility] SPECIFIC GRAVITY (U) 1.025 1.010 - 1.025 10/10/2024 6:44 AM RESTAURANT AND BAR MANAGER [facility] U PH 6.0 5.0 - 8.5 10/10/2024 6:44 AM RESTAURANT AND BAR MANAGER [facility] LEUKOCYTES (U) NEGATIVE NEGATIVE 10/10/2024 6:44 AM RESTAURANT AND BAR MANAGER [facility] NITRITES NEGATIVE NEGATIVE 10/10/2024 6:44 AM [facility] PROTEIN RANDOM (U) 1+(A) NEGATIVE 10/10/2024 6:44 AM RESTAURANT AND BAR MANAGER [facility] GLUCOSE (U) NEGATIVE NEGATIVE 10/10/2024 6:44 AM RESTAURANT AND BAR MANAGER [facility] KETONES MG/DL (U) NEGATIVE NEGATIVE 10/10/2024 6:44 AM [facility] UROBILINOGEN 2.0(H) 0.2 - 1.0 EU/DL 10/10/2024 6:44 AM RESTAURANT AND BAR MANAGER [facility] BILIRUBIN (U) 1+(A) NEGATIVE 10/10/2024 6:44 AM RESTAURANT AND BAR MANAGER [facility] BLOOD (U) NEGATIVE NEGATIVE 10/10/2024 6:44 AM RESTAURANT AND BAR MANAGER [facility] URINE SPECIMEN OBTAINED BY CLEAN CATCH PROCEDURE / Unknown 10/10/2024 6:00 AM RESTAURANT AND BAR MANAGER Yehuda Eaton DO URINE ORDERABLES Final Result [address] [place] [address], [place] * XR CHEST PORTABLE (10/10/2024 4:22 AM RESTAURANT AND BAR MANAGER) Anatomical Region Laterality Modality Chest Computed Tomogra phy 10/10/2024 4:24 AM RESTAURANT AND BAR MANAGER Impressions 10/10/2024 4:25 AM RESTAURANT AND BAR MANAGER IMPRESSION: No active disease. Referred By: Interpreted By: Corwin Hood MD, 10/10/2024 4:24 AM Narrative 10/10/2024 4:25 AM RESTAURANT AND BAR MANAGER [address] [place] [address] Portable chest INDICATION: Short of breath. COMPARISON: 11/23/2017. TECHNIQUE: Single AP chest view. FINDINGS: There is borderline cardiomegaly. Pulmonary vasculature is within normal limits. No focal infiltrates. No pleural fluid or pneumothorax. No acute bony abnormality. Procedure Note Corwin Hood MD - 10/10/[address] [place] [address] Portable chest INDICATION: Short of breath. COMPARISON: 11/23/2017. TECHNIQUE: Single AP chest view. FINDINGS: There is borderline cardiomegaly. Pulmonary vasculature iswithin normal limits. No focal infiltrates. No pleural fluid orpneumothorax. No acute bony abnormality. IMPRESSION: No active disease. Referred By: Interpreted By: Corwni Hood MD, 10/10/2024 4:24 AM Yehuda Eaton DO GENERAL IMAGING Final Result * CORONAVIRUS (COVID-19) MOLECULAR (10/10/2024 3:50 AM RESTAURANT AND BAR MANAGER) CORONAVIRUS SARS COV 2 RNA NEGATIVE NEGATIVE 10/10/2024 4:36 AM RESTAURANT AND BAR MANAGER [facility] Comment: NEGATIVE RESULTS DO NOT RULE OUT COVID 19 AND SHOULD NOT BE USED THE SOLE BASIS FOR TREATMENT OR PATIENT MANAGEMENT DECISIONS, INCLUDING INFECTION CONTROL DECISIONS. NEGATIVE RESULTS SHOULD BE CONSIDERED IN THE CONTEXT OF A PATIENT'S RECENT EXPOSURES, HISTORY AND THE PRESENCE OF CLINICAL SIGNS AND SYMPTOMS CONSISTENT WITH COVID 19. THE ID NOW COVID-19 2.0 TEST HAS BEEN AUTHORIZED BY THE FDA UNDER EAU FOR USE BY AUTHORIZED LABORATORIES. PERFORMED BY NUCLEIC ACID AMPLIFICATION FOR MOLECULAR QUALITATIVE DETECTION OF SARS-COV-2. SPECIMEN TYPE NASAL 10/10/2024 4:08 AM RESTAURANT AND BAR MANAGER [facility] NASOPHARYNGEAL SWAB / Unknown 10/10/2024 3:50 AM RESTAURANT AND BAR MANAGER us Yehuda Eaton DO MICROBIOLOGY - GENERAL ORDERAB LES Final Result Performing Organization Address [facility] Co de Phone Number [facility] [address] [place] [address], [place] * INFLUENZA A & B (10/10/2024 3:50 AM RESTAURANT AND BAR MANAGER) Pathologist [facility] SPECIMEN TYPE NASOPHARYNX 10/10/2024 4:08 AM RESTAURANT AND BAR MANAGER [facility] INFLUENZA A NEGATIVE NEGATIVE 10/10/2024 4:42 AM RESTAURANT AND BAR MANAGER [facility] INFLUENZA B NEGATIVE NEGATIVE 10/10/2024 4:42 AM RESTAURANT AND BAR MANAGER [facility] NASAL NASOPHARYNGEAL SWAB / Unknown 10/10/2024 3:50 AM RESTAURANT AND BAR MANAGER us Yehuda Eaton DO MICROBIOLOGY - GENERAL ORDERAB LES Final Result Performing Organization Address [facility]/ZIP Co de Phone Number [facility] [address] [facility] [place] [address], [place] * Colonoscopy ( RESTAURANT AND BAR MANAGER) Narrative [employer] TO EPIC CONVERSION - RESTAURANT AND BAR MANAGER Documented hx of procedure Procedure Note Tera Crawford MD - 08/20/2018 Documented hx of procedure Generic Conversion Md [facility] PROCEDURE ORDERABLES Final Result [employer] TO EPIC CONVERSION from Last 3 Months or Most Recently Relevant to Health Maintenance Insurance [facility]ICAID [facility] [address] [place] [id number] Advance Directives * Full Code (Latest Code Status on File) Date Activated Date Inactivated Comments 10/11/2024 12:44 AM 10/18/2024 3:14 PM Care Teams Sheet Rock Applicator Relationship Specialty Start Date End Date None, Provider, PCP - General UNKNOWN PHYSICIAN SPECIALTY 10/10/24
--- OUTSIDE RECORDS SUMMARY | 2025-01-08 14:01 | XMS_ITS | Data Portability ---
Author Organization [facility], [address] [place] [address] Neurology ([place]) Address [address] [place] [phone] Assessment No assessment recorded. Plan of Treatment Reminders Order Date Submit Date Provider Last Modified By Organization Details Last Modified Time Details Appointments None record ed. Lab None record ed. Referral None record ed. Procedures None record ed. Surgeries None record ed. Imaging None record ed. Medication Orders None record ed. Patient TargetsNo targets recorded. Patient Instructions Encounter Date Encounter Id Patient Instructions Last Modified By Organization Details Last Modified Time 04/10/2024 [id number] RTC in 1 year after LDCT scan and PFT with a repeat 6-minute walk. She will call me and let me know if anything comes up before that visit. [email or web address] Not available 04/10/2024 12:29:51 Reason for Referral None Reported. Results Created Date Observation Date Name Description Value Unit Range Abnormal Flag Note LastModifiedBy Organization Detail LastModifiedTime 04/11/20 24 04/06/2024 LDCT, chest , for lung pat cabrerajulio raya No observ ation record ed. [email or web address] [facility] - Radiology [address] [place], [address], 04/17/2024 16:16:57 05/01/20 24 08/03/2023 imagi ng/di agnos tic resul t No observ ation record ed. [email or web address] Not Available 21:30:23 05/31/20 24 03/23/2023 imagi ng/di agnos tic resul t No observ ation record ed. Not Available 05/31/2024 05:32:00 05/31/20 24 03/25/2023 imagi ng/di agnos tic resul t No observ ation record ed. Not Available 05/31/2024 05:32:04 05/31/2003/26/2023 imagi ng/di agnos tic resul t No observ ation record ed. Not Available 05/31/2024 05:32:05 Result Notes None recorded. Problems Name Problem SNOMED Code Status Onset Date Resolution Date Notes Provider Name and Address Organization Details Recorded Time Sarcoidosis 07022586 Active 2024 Karuna Lees [facility] 5 10:08:52 Chronic obstructive pulmonary disease 55232701 Active 2023 Samir Jaramillo [facility] 4 09:32:42 Sleep apnea 38864315 Active 2023 Samir Jaramillo [facility] 4 09:32:51 Chronic respiratory failure 51837097 Active 2023 Altagracia Skinner MD [address] [place] [address], [phone], [facility] 4 12:13:43 Pulmonary hypertension 81963516 Active 2023 Altagracia Skinner MD [address] [place] [address], [phone], [facility] 4 12:13:49 Smoker 73069106 Active 2023 Samir Jaarmillo [facility] 4 13:39:19 Problem Notes None recorded. Procedures Surgical History None recorded. Imaging Results Imaging Date Name Status LastModified by Organ [facility] Details LastModified Time 04/06/2024 LDCT, chest, for lung cancer screening completed [address] - Radiology [facility] [place], [address], 04/17/2024 16:16:57 08/03/2023 imaging/diagno stic result completed [email or web address] Information not available 05/01/2024 21:30:23 03/23/2023 imaging/diagno stic result completed Information not available 05/31/2024 05:32:00 03/25/2023 imaging/diagno stic result completed Information not available 05/31/2024 05:32:04 03/26/2023 imaging/diagno stic result completed Information not available 05/31/2024 05:32:05 Procedure Notes None recorded. Medical Equipment None Reported. Allergies Allergen ID Allergen Name Allergen Category Reaction Reaction Severity Criticality Documentation Date Start Date Code Code System Note Provider Name and Address Organization Details Recorded Time 710953 duloxetin e hydrochlo ride medicatio n Not available Not available Not available 11/14/20232011 59807 0 RxNorm Not Available Not Available Not Available Medications Name Sig Start Date Stop Date Status Note LastModified by Organization Details LastModified Time fluticasone 250 mcg-salmete rol 50 mcg/dose blistr powdr for inhalation Inhale 1 puff twice a day by inhalatio n route as directed. 04/10 completed Not Available Not Available Not Available nicotine 21 mg/24 hr daily transdermal patch USE DIRECTED. 2023 active Not Available Not Available Not Avai lable Breo Ellipta 100 mcg-25 mcg/dose powder for inhalation Inhale 1 puff every day by inhalatio n route. 2023 active Not Available Not Available Not Avai lable Incruse Ellipta 62.5 mcg/actuati on powder for inhalation Inhale 1 puff every day by inhalatio n route as directed. 2023 active Not Available Not Available Not Avai lable Vitals Date Recorded Body height Body mass index (BMI) Body weight Body temperature Heart rate Respiratory rate Oxygen saturation Oxygen saturation in Arterial blood by Pulse oximetry Inhaled oxygen flow rate Systolic blood pressure Diastolic blood pressure Provider Name and Address Organization Details Last Updated DateTime 152.4 cm 25.4 kg/m2 77530.0 1 g 98.2 [degF] 70 /min 20 /min 94 % 94 % 2 L/min 113 mm[Hg] 69 mm[Hg] Samir Isbill [place] - [facility] 4 12:02:14 Social History Question Answer Notes LastModified by Organization D etails LastModified Time How Many Packs Per Day (PPD)? 1 Information not available 04/10/2024 How Long Have You Smoked? 53 Information not available 04/10/2024 Sex: Unknown Functional Status None recorded. Mental Status None recorded. Family History Nothing Reported. Medical History No medical history recorded. Gynecological HistoryNo gynecological history recorded. Obstetrics History GPAL:G 0 P 0 0 0 0 Past Encounters Encounter ID Performer Location Encounter Start Date Encounter Closed Date Diagnosis/Indication Diagnosis SNOMED-CT Code Diagnosis ICD10 Code Diagnosis Note [id number] Altagracia Skinner MD [facility] ([facility]) [address] [place] [address] 04/10/2024 11:40:47 04/10/2024 12:42:45 Chronic obstructive pulmonary disease 89275478 J44.9 The patient has very severe COPD. Testing today shows declining FEV1 of only 28% and her continued tobacco abuse in the setting is highly problemati c. She has a lot of chronic bronchitis symptoms and has not cough has not changed in character lately. Will keep her on her triple inhaler therapy with combinatio n of Advair and Incruse. It is really quitting smoking that would help her respirator y status more than anything at this point. Sleep apnea 92894869 G47 .30 Supposed to be on an astral home vent, but this was taken away by insurance due to noncomplia nce. She is using 2 L/min of oxygen with sleep instead. Chronic re spiratory failure 67695170 J96.10 Has chronic hypoxic and hypercapni c respirator y failure. NIPPV was taken away due to noncomplia nce. Using 2 L/min of oxygen with activity. She understand s not to smoke around the oxygen. Pulmonary hypertension 89290845 I27.20 She has pulmonary hypertensi on is related to her pulmonary disease. Echocardio gram from 08/08 showed RV enlargemen t with normal function and RVSP estimated at 40 to 45 mmHg. I do not think she needs any vasodilato rs. She needs to be more consistent with her noninvasiv e mechanical ventilatio n at home. Smokes tobacco daily 449 691186 Z72.0 I've had a lengthy discussion with the patient regarding the urgent need to quit smoking permanentl y. We have discussed some methods to aid in smoking cessation. With the increasing anxiety that she is having, I do not think that Chantix would be a good option for her right now. Have recommende d nicotine patches and she is agreeable to giving that a try so I will send in a prescripti on for her. Health Concerns Section Related Observation LastModified by Organization Detai ls LastModified Time None Recorded Concern Status LastModified by Organization Details LastModified Time None Recorded Advance Directives Directive None Recorded Payers Encounter Date Sequence Insurance Name Policy Number Policy Casarez Covered Member ID Casarez Member ID Guarantor Name 04/10/2024 1 [place] Gabbie Garcia [id number] Gabbie Garcia 04/10/2024 2 [place] [facility] PUBLIC AID Gabbie Garcia [id number] Gabbie Garcia Notes Date Note Type Note Provider Name and Address Organization Details Recorded Time 04/10/2024 text/html [facility] 63 year-old with a 98-athp-fcpd smoking history who returns to pulm clinic for COPD and hypoxic and hypercapnic respiratory failure on an astral home vent and supplemental oxygen. The patient was supposed to be on an astral home vent for her sleep apnea and hypercapnic respiratory failure, but that was taken away due to noncompliance. Instead, she is using 2 L/min of oxygen with sleep and 2 L/min of oxygen with activity. The patient finds it very difficult to go out in the hot/humid weather that we are having this summer. She takes a neb treatment once a day, but thinks she probably needs to take it at least 3 times a day due to dyspnea. She does have a chronic cough that has really not changed much as compared to baseline, productive of white/yellow phlegm. No hemoptysis. Continues to smoke heavily. Has a lot of fatigue. Has a lot of depression going on right now due to family issues and she says she is getting the support and help that she needs. PMHx: COPD, chronic respiratory failure, sleep apnea, diabetes, hyperlipidemia, hypertension, depressionSurgHx: Tubal ligation, cataract surgerySocHx: 30-pdih-wxur smoking history and a recovering alcoholic.FamHx: Cancer, asthma, COPD, CAD Altagracia Skinner MD [address] [place] [address], [phone], [facility] 04/10/2024 12:33:54 OBGyn Episode No OBEpisode recorded.
--- OUTSIDE RECORDS SUMMARY | 2025-01-08 14:01 | XMS_ITS | Clinical Summary ---
Author Organization [facility] Care Team Providers Care Technical Sales Representatives Name Role Phone Unavailable Primary Care Provider Unavailabl e Social History Tobacco Use Types Packs/Day Years Used Date Smoking Tobacco: Never Assessed Comments Unknown Sex and Gender Information Value Date Recorded Sex Assigned at Not on file Legal Sex Female 7:18 PM CDT Gender Identity Not on file Sexual Orientation Not on file Plan of Treatment Health Maintenance Due Date Last Done Comments DEXA Bone Density 1960 Hepatitis C Virus (HCV) Screening 1958 TdaP Immunization 1958 Pap Smear 1979 Cervical Cancer Screening (CCS) 1988 HPV/Cotest 1988 Colonoscopy 2003 Colorectal Cancer Screening 2003 Cologuard 2008 Immunochemical Fecal Occult Blood 2008 Mammogram 2008 Pneumococcal Immunization (5 0+ years) (1 of 1 - PCV) 2008 Zoster Immunization (1 of 2) 2008 Influenza Immunization (#1) 2024 SARS-COV-2 Immunization ( - 2023- season) 2024 Respiratory Syncytial Virus (RSV) Immunization (Adult) (1 - 1-dose 75+ series) 2033 Hepatitis B Immunization Aged Out No longer eligible based on patient's age to complete this topic Meningococcal Immunization (ACWY) Aged Out No longer eligible based on patient's age to complete this topic Rotavirus Immunization Aged Out No lo nger eligible based on patient's age to complete this topic
[2025-01-09 10:43] LABS: Bilirubin Direct 0.4 mg/dL (0-0.2); Bilirubin Indirect 1.2 mg/dL (0-1.0)
== END 2025-01-08 11:51 | disposition home or self-care (01) ==
LOC: CHSLAB 11:55
PROVIDERS: PCP Family Medicine; Visit Provider Family Medicine
DX: E11.42 Type 2 diabetes mellitus with diabetic polyneuropathy (principal)
CPT/HCPCS: 36415; 80053; 81003; 82043; 82248; 83036; 84443; 85025

== ENCOUNTER 2025-01-30 14:15 | Outpatient (CLI) | payer MEDICARE, MEDICAID, SELFPAY ==
--- NOTE | ~2025-01-30 | XR_ITS ---
Clinical Indication: Pneumonia PA and lateral views of the chest: Comparison: 07/17/2024 Findings: The lungs are clear, without evidence of focal consolidation or pleural effusion. Possible COPD. Cardiomediastinal silhouette is within normal limits. Bones and soft tissues are unremarkable. Impression: Clear lungs. Possible COPD. Reviewed, dictated and finalized at location . Impression: Clear lungs. Possible COPD.
--- OUTSIDE RECORDS SUMMARY | 2025-01-30 15:30 | XMS_ITS | Clinical Summary ---
Author Organization [facility] Address [address] [place] [address] Care Team Providers Care Director Of Sales Name Role Phone None, Provider MD Primary [...] Problem Noted Date Diagnosed Date COPD exacerbation ([facility]) 10/10/2024 Family History Medical History Relation Comments Cancer [...] drink = 0.6 oz pur e alcohol) [facility] Utilities Answer Date Recorded In the past 12 months has th e electric, gas, oil, or water company threatened to shut off services in your [...] any time in the past 12 m [facility], were you homeless or living in a longterm (including now)? Patient declined 10/12/2024 Comments Unknown [...] Comments Blood Pressure 123/62 10/18/2024 8:34 AM PECAN PICKER Pulse 76 10/18/2024 8:34 AM PECAN PICKER Temperature 36.9 C (98.5 F) 10/18/2024 8:34 AM PECAN PICKER Respiratory Rate 16 10/18/2024 8:34 AM PECAN PICKER Oxygen Saturation 95% 10/18/2024 8:34 AM PECAN PICKER Inhaled Oxygen Concentration - - Weight 56.8 kg (125 lb 3.5 oz) 10/18/2024 5:00 A M PECAN PICKER Height 152.4 cm (5') 10/11/2024 12:56 AM PECAN PICKER Body Mass Index 24.46 10/11/2024 12:56 AM PECAN PICKER Plan of Treatment Health Maintenance Due Date Last Done Comments Colorectal Cancer Screening Colonoscopy (10 Years) 1958 Pneumococcal Vaccine: 50+ Years (1 of 2 - PCV) 1964 Hepatitis C 1976 DTaP, Tdap and Td Vaccines ( 1 - Tdap) 1977 Mammogram Screening 1998 RSV Immunization or 60+ Years (1 - Risk 60-74 years 1-dose series) 2018 Annual Medicare Wellness Visit 2023 Dexa Scan (General) 2023 COVID-19 Vaccine (3 - 2023-2 5 season) 2024 04/10/2021, 03/20/2021 Zoster Vaccines (2 of 2) 06/30/2024 05/05/2024 Meningococcal B Vaccine Aged Out No l onger eligible based on patient's age to complete this topic Meningococcal Vaccine Aged Out No bairon marlin eligible based on patient's age to complete this topic RSV Immunizations Under 20 Months Aged Out No longer eligible b ased on patient's age to complete this topic Procedures Procedure Name Priority Date/Time Associated Diagnosis Comments COLONOSCOPY Routine PECAN PICKER from Last 3 Months or Most Recently Relevant to Health Maintenance Results * Colonoscopy ( PECAN PICKER) Narrative [facility] TO EPIC CONVERSION - PECAN PICKER Documented hx of procedure Procedure Note Tera Crawford MD - 08/20/2018 Documented hx of procedure us Generic Conversion Md [facility] PROCEDURE ORDERABLES Final Result [employer] TO EPIC CONVERSION from Last 3 Months or Most Recently Relevant to Health Maintenance Insurance MEDICAID MEDICAID Member Subscriber Plan / Payer (Ef fective 2018-Present) Name:Radha Gabbie A Relation to Subscriber:Self Name:Garcia Gabbie A Payer ID:Not on file Group ID:Not on file Type:Not on file Address: [address] Advance Directives * Full Code (Latest Code Status on File) Date Activated Date Inactivated Comments 10/11/2024 12:44 AM 10/18/2024 3:14 PM Care Teams Director Of Sales Relationship Specialty Start Date End Date None, Provider, PCP - General UNKNOWN PHYSICIAN SPECIALTY 10/10/24
--- OUTSIDE RECORDS SUMMARY | 2025-01-30 15:30 | XMS_ITS | Data Portability ---
Author Organization [facility], [address] [place] [address] Neurology ([place]) Address [address] [place] [phone] Assessment No assessment recorded. Plan of Treatment Reminders Order Date Submit Date Provider Last Modified By Organization Details Last Modified Time Details Appointments Exercise 15.PRO 2024 03:00P M [facility] Not available Not available Not available Sharaths hed Patient 20.EST 2024 03:20P M Dr. Altagracia Skinner Not available Not available Not available Lab None recorded . Referral None recorded . Procedures None recorded . Surgeries None recorded . Imaging None recorded . Medication Orders None recorded . Patient TargetsNo targets recorded. Patient Instructions Encounter Date Encounter Id Patient Instructions Last Modified By Organization Details Last Modified Time 04/10/2024 [id number] RTC in 1 year after LDCT scan and PFT with a repeat 6-minute walk. She will call me and let me know if anything comes up before that visit. [email or web address] Not available 04/10/2024 12:29:51 Reason for Referral None Reported. Results Created Date Observation Date Name Description Value Unit Range Abnormal Flag Note LastModifiedBy Organization Detail LastModifiedTime 04/11/2004/06/2024 LDCT, chest , for lung cance r ricke dorota No observ ation record ed. [email or web address] [facility] - Radiology [address] [facility], [place], [address], 04/17/2024 16:16:57 05/01/20 24 08/03/2023 imagi ng/di agnos tic resul t No observ ation record ed. [email or web address] Not Available 21:30:23 05/31/20 24 03/23/2023 imagi ng/di agnos tic resul t No observ ation record ed. Not Available 05/31/2024 05:32:00 05/31/20 24 03/25/2023 imagi ng/di agnos tic resul t No observ ation record ed. Not Available 05/31/2024 05:32:04 05/31/20 24 03/26/2023 imagi ng/di agnos tic resul t No observ ation record ed. Not Available 05/31/2024 05:32:05 Result Notes None recorded. Problems Name Problem SNOMED Code Status Onset Date Resolution Date Notes Provider Name and Address Organization Details Recorded Time Sarcoidosis 23919339 Active 2024 Karuna Gómezley [facility] 5 10:08:52 Chronic obstructive pulmonary disease 64826425 Active 2023 Samir Jaramillo [facility] 4 09:32:42 Sleep apnea 36911960 Active 2023 Samir Jaramillo [facility] 4 09:32:51 Chronic respiratory failure 16591333 Active 2023 Altagracia Skinner MD [facility] [place] [address], [phone] [place] [address] 4 12:13:43 Pulmonary hypertension 05566679 Active 2023 Altagracia Skinner MD [facility] [place] [address], [phone] , [facility] 4 12:13:49 Smoker 57951542 Active 2023 Samirish Jaramillo [facility] 4 13:39:19 Problem Notes None recorded. Procedures Surgical History None recorded. Imaging Results Imaging Date Name Status LastModified by [facility] Details LastModified Time 04/06/2024 LDCT, chest, for lung cancer screening completed [address] - Radiology [facility] [place], [address], 04/17/2024 16:16:57 08/03/2023 imaging/diagno stic result completed [...] Name and Address Organization Details Recorded Time [id number] duloxetin e hydrochlo ride medicatio n Not available Not available Not available 11/14/20232011 08349 0 RxNorm Not Available Not Available Not [...] and Address Organization Details Last Updated DateTime 06/25/202 4 152.4 cm 25.4 kg/m2 37287.0 1 g 98.2 [degF] 70 /min 20 /min 94 % 94 % 2 L/min 113 mm[Hg] 69 mm[Hg] Samir Jaramillo [facility] 12:02:14 Social History Question Answer Notes LastModified [...] SNOMED-CT Code Diagnosis ICD10 Code Diagnosis Note [id number] Altagracia Skinner MD [facility] ([place]) [address] [place] [address] 04/10/2024 11:40:47 04/10/2024 12:42:45 Chronic obstructive pulmonary disease 95229915 J44.9 The patient has very severe COPD. [...] than anything at this point. Sleep apnea 78850954 G47 .30 Supposed to be on an astral home vent, but this was taken away by insurance due to noncomplia nce. She is using 2 L/min of oxygen with sleep instead. Chronic re spiratory failure 69072452 J96.10 Has chronic hypoxic and hypercapni c respirator y failure. NIPPV was taken away due to noncomplia nce. Using 2 L/min of oxygen with activity. She understand s not to smoke around the oxygen. Pulmonary hypertension 88009255 I27.20 She has pulmonary hypertensi on is related to her pulmonary disease. Echocardio gram from 08/08 showed RV enlargemen t with normal function and RVSP estimated at 40 to 45 mmHg. I do not think she needs any vasodilato rs. She needs to be more consistent with her noninvasiv e mechanical ventilatio n at home. Smokes tobacco daily 449 339499 Z72.0 I've had a lengthy discussion with [...] Casarez Member ID Guarantor Name 04/10/2024 1 [place] Gabbie Garcia [id number] Gabbie Garcia 04/10/2024 2 [place] [facility] [employer] Gabbie Garcia [id number] Gabbie Garcia Notes Date Note Type Note Provider Name and Address Organization Details Recorded Time 04/10/2024 text/html [facility] 63 year-old with a [id number]-dwdu-[id number] smoking history who returns to pulm clinic [...] hyperlipidemia, hypertension, depressionSurgHx: Tubal ligation, cataract surgerySocHx: 48-uacm-mhao smoking history and a recovering alcoholic.FamHx: Cancer, asthma, COPD, CAD Altagracia Skinner MD [address] [place] [address], [phone], [facility] 04/10/2024 12:33:54 OBGyn Episode No OBEpisode recorded.
--- OUTSIDE RECORDS SUMMARY | 2025-01-30 15:30 | XMS_ITS | Clinical Summary ---
Author Organization [facility] Care Team Providers Care Loader [place] Name Role Phone Unavailable Primary Care Provider [...]
== END 2025-01-30 14:16 | disposition home or self-care (01) ==
PROVIDERS: PCP Family Medicine; Visit Provider Family Medicine
DX: J18.9 Pneumonia, unspecified organism (principal)
CPT/HCPCS: 71046

== ENCOUNTER 2025-03-06 12:21 | Outpatient (CLI) | payer MEDICARE, MEDICAID, SELFPAY ==
--- OUTSIDE RECORDS SUMMARY | 2025-03-06 12:24 | XMS_ITS | Clinical Summary ---
Author Organization [facility] Care Team Providers Care Lumber Puller Name Role Phone Unavailable Primary Care Provider [...]
[2025-03-06 12:41] LABS: Basophils Absolute Auto 0.03 K/mm3 (0.00-0.10); Basophils Percent Auto 0.4 % (0.0-1.0); Eosinophils Absolute Auto 0.25 K/mm3 (0.02-0.50); Hemoglobin 13.1 g/dL (11.7-13.8); Immature Granulocyte Absolute 0.03 K/mm3 (0.00-0.00); Immature Granulocyte Percent A 0.4 % (0.0-0.0); Lymphocytes Absolute Auto 1.45 K/mm3 (1.10-4.50); Lymphocytes Percent Auto 17.4 % (18.0-42.0); Mean Corpuscular HGB Conc 29.1 g/dL (32-36); Mean Corpuscular Hemoglobin 29.2 pg (27.0-31.0); Mean Corpuscular Volume 100.4 fL (78.0-102.0); Mean Platelet Volume 10.5 fl (9.2-11.8); Monocytes Absolute Auto 0.66 K/mm3 (0.10-0.90); Monocytes Percent Auto 7.9 % (2.0-11.0); Neutrophils Absolute Auto 5.93 K/mm3 (1.70-7.20); Neutrophils Percent Auto 70.9 % (50.0-70.0); Platelet Count Result 202 K/mm3 (150-420); Red Blood Count 4.48 M/mm3 (4.20-5.40); Red Cell Distribution Width 15.2 % (11.6-14.4); White Blood Count 8.4 K/mm3 (4.8-10.8)
[2025-03-06 13:56] LABS: Anion Gap 4.99999 mmol/L (4-12); Blood Urea Nitrogen 11 mg/dL (7-17); Calcium 8.7 mg/dL (8.4-10.2); Carbon Dioxide > 40 mmol/L (22-30); Chloride 92 mmol/L (98-107); Estimated Glomerular Filt Rate > 60; Glucose 110 mg/dL (65-110); Osmolality Calculated 284 mOsm/kg (285-295); Potassium 3.9 mmol/L (3.4-5.0); Sodium 137 mmol/L (137-145)
== END 2025-03-06 12:22 | disposition home or self-care (01) ==
LOC: CHSLAB 12:22
PROVIDERS: PCP Family Medicine; Visit Provider Family Medicine
DX: I10 Essential (primary) hypertension (principal)
CPT/HCPCS: 36415; 80048; 85025